=== PATIENT | male | born 1965 | race Caucasian/White ===

== ENCOUNTER 2017-11-30 19:47 | Observation (INO) ==
[2017-11-30 20:38] LABS: Bilirubin,Urine Negative (Negative); Blood,Urine Negative (Negative); Clarity,Urine Clear (Clear); Color,Urine Yellow (Yellow); Glucose,Urine (UA) Normal (Normal); Ketones,Urine Negative (Negative); Leukocyte Esterase,Urine Negative (Negative); Nitrite,Urine Negative (Negative); PH,Urine 7.5 pH Units (5.0-8.0); Protein,Urine Negative (Neg-Trace); Specific Gravity,Urine 1.016 (1.010-1.025); Urobilinogen,Urine Normal (Normal)
[2017-11-30 21:03] LABS: Basophils # 0.1 K/mcL (0.0-0.2); Basophils % 0.5 %; Eosinophils # 0.2 K/mcL (0.0-0.6); Eosinophils % 1.9 %; Hematocrit 48.7 % (37.5-50.1); Hemoglobin 16.8 g/dL (12.9-16.9); Immature Granulocytes % 0.7 % (0-4); Lymphocytes # 1.4 K/mcL (0.6-4.6); Lymphocytes % 12.4 %; Mean Corpuscular HGB Conc 34.5 g/dL (31.6-35.5); Mean Corpuscular Hemoglobin 31.3 pg (28.0-33.3); Mean Corpuscular Volume 90.9 fL (83.0-100.0); Mean Platelet Volume 11.2 fL (9.4-12.4); Monocytes # 0.8 K/mcL (0.0-1.3); Neutrophils # 8.6 K/mcL (1.6-8.9); Platelet Count 159 K/mcL (140-400); Red Blood Count 5.36 M/mcL (4.19-5.50); Segmented Neutrophils % 77.5 %
[2017-11-30 21:21] LABS: Alanine Aminotransferase 24 Units/L (7-52); Albumin 4.4 g/dL (3.5-5.7); Albumin/Globulin Ratio 1.6 (1.1-2.2); Alkaline Phosphatase 55 Units/L (34-104); Amylase 38 Units/L (29-103); Aspartate Amino Transferase 18 Units/L (13-39); BUN/Creatinine Ratio 23 (6-26); Bilirubin,Direct 0.2 mg/dL (0.0-0.2); Bilirubin,Indirect 0.6 mg/dL (0.0-1.2); Bilirubin,Total 0.8 mg/dL (0.3-1.0); Blood Urea Nitrogen 22 mg/dL (6-20); Calcium 9.7 mg/dL (8.6-10.3); Carbon Dioxide 27 mEq/L (23-29); Chloride 101 mEq/L (98-107); Globulin 2.8 g/dL (2.4-3.5); Glucose 90 mg/dL (70-105); Lipase 26 Units/L (11-82); Osmolality,Calculated 285 (280-300); Potassium 3.7 mEq/L (3.5-5.1); Sodium 136 mEq/L (136-145); Total Protein 7.2 g/dL (6.4-8.9); eGFR For African Americans > 60 (> 60); eGFR For Non-African Americans > 60 (> 60)
[2017-11-30] MEDS ORDERED: *HR* FentaNYL (PF) 100 MCG/2 ML VIAL IVP ONE (22:10)
[2017-11-30] MEDS ORDERED: Ondansetron 4 MG/2 ML VIAL IVP ONE (22:10)
[2017-11-30] MEDS ORDERED: Isovue-370 500 ML INFUS..BTL IV ONE (22:20)
[2017-12-01] MEDS ORDERED: MetroNIDAZOLE 500 MG/100 ML 500 MG/100 ML BAG IVPB ONE (00:09)
--- NOTE | 2017-12-01 00:19 | Emergency Department Note ---
Disposition Clinical Impression: Diverticulitis Disposition: Admitted As Inpatient Condition: Fair Time of Disposition: 02:59 Abdominal Pain HPI - General Chief Complaint: ED Abdominal Pain Stated Complaint: "diverticulitis" Time Seen by Provider: 11/30/17 22:10 Nursing Notes Reviewed: Yes Vital Signs Reviewed: Yes - History of Present Illness HPI Narrative: Patient is a 52-year-old male who presents to [facility] ED with several days of left lower quadrant abdominal pain. States he has been nauseated and has not had anything to eat today. States he did have a fever earlier today. Denies any chest pain, difficulty breathing, problems with urination or bowel movements. States he was diagnosed in the past with diverticulitis and had to be admitted for this. Pt Subjective Complaint: abdominal pain Onset (ago): day(s) Consistency: Worsening Location: LLQ Pain Severity: moderate Pain Scale: 6 Quality: aching Radiation: none Migration to: no migration Improves with: nothing Worsens with: nothing Associated symptoms: Reports: nausea. Denies: vomiting, diarrhea, fever, chills , constipation, dysuria Treatments prior to arrival: none - Related Data Home Medications Medication Instructions Recorded Confirmed Atenolol [Tenormin] 25 mg PO DAILY 10/30/16 06/04/17 DULoxetine [Cymbalta] 30 mg PO BID 10/30/16 06/04/17 Ergocalciferol (VITAMIN D2) 50,000 unit PO SUTUTHSA 10/30/16 06/04/17 [Vitamin D2] Ezetimibe [Zetia] 10 mg PO DAILY 10/30/16 06/04/17 Glimepiride [Amaryl] 4 mg PO BID 10/30/16 06/04/17 HYDROmorphone [Dilaudid] 2 - 4 mg PO Q6HR PRN 10/30/16 06/04/17 LORazepam [Lorazepam] 2 mg PO BID 10/30/16 06/04/17 Levothyroxine Sodium [Synthroid] 200 mcg PO DAILY 10/30/16 06/04/17 Losartan Potassium [Cozaar] 100 mg PO DAILY 10/30/16 06/04/17 Metformin HCl [Glucophage] 1,000 mg PO BID 10/30/16 06/04/17 OxyCODONE Immed Rel [Roxicodone 20 20 mg PO Q6H PRN 10/30/16 06/04/17 MG] Sildenafil Citrate [Revatio] 20 mg PO DAILY PRN 10/30/16 06/04/17 Testosterone Cypionate [Testone 2 ml IM Q2W 10/30/16 06/04/17 Cik] Trazodone HCl 100 mg PO HS 10/30/16 06/04/17 diazePAM [Valium] 5 mg PO BID PRN 10/30/16 06/04/17 Allopurinol [Zyloprim 100 MG] 100 mg PO DAILY 06/04/17 06/04/17 Fish Oil/Borage/Flax/Om3,6,9#1 1,200 mg PO BID 06/04/17 06/04/17 [[place] 3-6-9 1,200 mg Softgel] Gemfibrozil [Lopid] 600 mg PO BID 06/04/17 06/04/17 Liraglutide [Victoza 2-Fly] 1.8 mg SQ DAILY 06/04/17 06/04/17 Triamterene/HCTZ 37.5/25mg 1 tab PO DAILY 06/04/17 06/04/17 [Dyazide] Varenicline Tartrate [Chantix 1 tab PO BID 06/04/17 06/04/17 Continuing Months Pack] Previous Rx's Medication Instructions Recorded HYDROcodone/Acet 5/325 mg [[place] 1 tab PO Q6H PRN #28 tab 06/04/17 5-325 mg] Allergies Allergy/AdvReac Type Severity Reaction Status Date / Time amphetamine [From Adderall] Allergy Anaphylaxis Verified 06/04/17 11:16 bupropion [From Wellbutrin] Allergy Anaphylaxis Verified 06/04/17 11:16 dextroamphetamine Allergy Anaphylaxis Verified 06/04/17 11:16 [From Adderall] tapentadol [From Nucynta] Allergy Anaphylaxis Verified 06/04/17 11:16 tramadol Allergy Anaphylaxis Verified 06/04/17 11:16 All systems ED: reviewed and negative except as stated. Abdominal Pain PMH - Past Medical History Medical history: Reports: diabetes, hyperlipidemia, hypertension, thyroid disease, other Male Surgical History: Reports: herniorrhaphy Psychiatric history: Reports: no psych history - Social History Smoking status: Former smoker Alcohol use: Reports: occasionally Drug use: Reports: none Physical Exam - General Limitations: no limitations General appearance: alert, in no apparent distress - Head Head exam: atraumatic, normocephalic, normal inspection - Eye Eye exam: Present: normal appearance, EOMI - ENT ENT exam: normal exam, normal oropharynx, mucous membranes moist - Neck Neck exam: Present: normal inspection, full ROM, trachea midline - Chest Chest inspection: Present: normal inspection, symmetric chest wall rise - Respiratory Respiratory exam: Present: normal lung sounds bilaterally - Cardiovascular Cardiovascular exam: Present: regular rate, normal rhythm, normal heart sounds - Abdominal Exam Abdominal exam: Present: soft, tenderness, normal bowel sounds Abdominal tenderness: Present: LLQ, severe - Extremities Exam Extremities exam: Present: normal inspection, full ROM. Absent: tenderness, pedal edema - Back Exam Back exam: Present: normal inspection, full ROM. Absent: tenderness - Neurological Exam Neurological exam: Present: alert, oriented X3 - Psychiatric Psychiatric exam: Present: normal affect, normal mood - Skin Skin exam: Present: warm, dry, intact, normal color Course Course Narrative: Patient seen and examined. Left lower quadrant abdominal pain. Suspect possible diverticulitis. Since patient has had this severe in the past and has been admitted, we will go ahead and get a CT abdomen and pelvis and labwork. 100 g of fentanyl ordered for pain and 4 mg Zofran for nausea. We will reassess. - Reevaluation(s) Reevaluation #1: CT shows signs of diverticulitis. Cipro and Flagyl ordered IV. I went back to discuss with the patient. Patient states his pain feels even worse than the last time he was admitted. Feels he would not be able to get better just on outpatient antibiotics since last time he got worse on oral antibiotics. We will admit for IV antibiotics. Time: 02:58 Vital Signs Temperature 98.4 F 11/30/17 19:49 Pulse Rate 96 11/30/17 19:49 Respiratory Rate 18 11/30/17 19:49 Blood Pressure 136/82 11/30/17 19:49 O2 Sat by Pulse Oximetry 98 11/30/17 19:49 Temperature 98.4 F 12/01/17 02:53 Pulse Rate 77 12/01/17 02:53 Respiratory Rate 14 12/01/17 02:53 Blood Pressure 124/78 12/01/17 02:53 O2 Sat by Pulse Oximetry 96 12/01/17 02:53 Oxygen Delivery Oxygen Delivery Room Air Abdominal Pain - Medical Records Medical records reviewed: Yes I reviewed the patient's medical records. - Lab Data Lab results reviewed: Yes I reviewed the patient's lab results. Result diagrams: 11/30/17 20:38 11/30/17 20:38 Lab Results 11/30/17 11/30/17 11/30/17 Range/Units 20:15 20:38 20:38 WBC 11.1 (4.3-11.1) K/mcL RBC 5.36 (4.19-5.50) M/mcL Hgb 16.8 (12.9-16.9) g/dL Hct 48.7 (37.5-50.1) % MCV 90.9 (83.0-100.0) fL MCH 31.3 (28.0-33.3) pg MCHC 34.5 (31.6-35.5) g/dL RDW 14.0 (11.5-14.5) % Plt Count 159 (140-400) K/mcL MPV 11.2 (9.4-12.4) fL Immature Gran % 0.7 (0-4) % Seg Neutrophils % 77.5 % Lymphocytes % 12.4 % Monocytes % 7.0 % Eosinophils % 1.9 % Basophils % 0.5 % Neutrophils # 8.6 (1.6-8.9) K/mcL Lymphocytes # 1.4 (0.6-4.6) K/mcL Monocytes # 0.8 (0.0-1.3) K/mcL Eosinophils # 0.2 (0.0-0.6) K/mcL Basophils # 0.1 (0.0-0.2) K/mcL Sodium 136 (136-145) mEq/L Potassium 3.7 (3.5-5.1) mEq/L Chloride 101 (98-107) mEq/L Carbon Dioxide 27 (23-29) mEq/L BUN 22 H (6-20) mg/dL Creatinine 0.96 (0.70-1.30) mg/dL Est GFR ( Amer) > 60 (> 60) Est GFR (Non-Af Amer) > 60 (> 60) BUN/Creatinine Ratio 23 (6-26) Glucose 90 (70-105) mg/dL Calculated Osmolality 285 (280-300) Calcium 9.7 (8.6-10.3) mg/dL Total Bilirubin 0.8 (0.3-1.0) mg/dL Direct Bilirubin 0.2 (0.0-0.2) mg/dL Indirect Bilirubin 0.6 (0.0-1.2) mg/dL AST 18 (13-39) Units/L ALT 24 (7-52) Units/L Alkaline Phosphatase 55 (34-104) Units/L Serum Total Protein 7.2 (6.4-8.9) g/dL Albumin 4.4 (3.5-5.7) g/dL Globulin 2.8 (2.4-3.5) g/dL Albumin/Globulin Ratio 1.6 (1.1-2.2) Amylase 38 (29-103) Units/L Lipase 26 (11-82) Units/L Urine Color Yellow (Yellow) Urine Clarity Clear (Clear) Urine pH 7.5 (5.0-8.0) pH Units Ur Specific [place] 1.016 (1.010-1.025) Urine Protein Negative (Neg-Trace) mg/dL Urine Glucose (UA) Normal (Normal) mg/dL Urine Ketones Negative (Negative) mg/dL Urine Blood Negative (Negative) Urine Nitrite Negative (Negative) Urine Bilirubin Negative (Negative) Urine Urobilinogen Normal (Normal) mg/dL Ur Leukocyte Esterase Negative (Negative) Ur Culture Indicated? NO (NO) - Radiology Data Radiology results reviewed: Yes I reviewed the patient's radiology results. Abdomen/Pelvis CT 11/30/17 22:20 IMPRESSION: Diverticulitis of the proximal descending colon. D/ / Ulises Allen MD / Ulises Allen MD Interpreting Provider: Ulises Allen MD Attestation Statement - Attestation Attestation: I examined this patient and my medical decision-making was reviewed with the Resident Physician. I agree with the documented findings, disposition and treatment plan as described except to the extent set forth below. Findings consistent with diverticulitis, located by nausea vomiting. We will start antibiotics and admit for nausea control as well as pain control and IV antibiotics.
[2017-12-01] MEDS ORDERED: Naloxone 0.4 MG/ML INJ IVP PRN (07:36)
[2017-12-01] MEDS ORDERED: Acetaminophen 325 MG TABLET PO PRN (07:36)
[2017-12-01] MEDS ORDERED: OXYCODONE Oral CONC 10 MG/0.5 ML ORAL.SYG SL PRN ×2 (07:36)
[2017-12-01] MEDS: *HR* Promethazine 25 MG/ML VIAL IVP PRN ×2 (08:31→20:08)
[2017-12-01] MEDS: Ringers Solution, Lactated 1,000 ML IVC SCH ×2 (08:31→20:08)
[2017-12-01] MEDS: MetroNIDAZOLE 500 MG/100 ML 500 MG/100 ML BAG IVPB SCH ×3 (08:34→22:45)
--- NOTE | 2017-12-01 08:47 | Internal Med History&Physical ---
Date of Encounter: 12/01/17 Time of Encounter: 08:40 Internal Medicine - H&P: HPI Chief complaint: Abdominal pain Admitted From: Emergency Dept Plans for Post Hospital Care: Home History of present illness: Mr. Chery is a 52 year old male patient with a history of diverticulitis, myotonic muscular dystrophy, diabetes mellitus, hypertension, hyperlipidemia who presented to the ER with complaints of left-sided abdominal pain. Symptoms began 2 days back. Progressively worsening. Patient reports that pain is 6-7 out of 10 in severity which he usually tolerates pain at a high level due to his chronic pain. He reports that he had an episode of diverticulitis 2 years back which became complicated and did not improve for about a month. He did not have any surgery at that time and underwent colonoscopy at a later date. He reports nausea. No vomiting. No hematochezia. No fevers at home. He does have diarrhea. Past Med Surg Social Fam HX - Past Medical History Attestation: Yes The following information was validated with the patient. 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 pacemaker - Social History Smoking Status: Former smoker Smokeless Tobacco Status: No Alcohol use: occasionally Drug use: none - Family History Mother Living Status: Still Living Hx Family Cardiac Disorders: Yes (pacemaker) Hx Family Respiratory Disorders: No Hx Family Cancer: No Hx Family GI Disorders: No Hx Family Genitourinary Disorders: No Hx Family Endocrine Disorder: No Hx Family Musculoskeletal Disorders: No Hx Family Neuromuscular Disorders: No Hx Family Neurologic Disorders: No Hx Family HEENT Disorders: No Hx Family Autoimmune Disorders: No Hx Family Reproductive Disorders: No Hx Family Psychosocial Disorders: No Hx Family Medical Disorders: No Father Living Status: Still Living Hx Family Cardiac Disorders: No Hx Family Respiratory Disorders: No Hx Family Cancer: Yes (skin ca) Hx Family GI Disorders: No Hx Family Genitourinary Disorders: No Hx Family Endocrine Disorder: No Hx Family Musculoskeletal Disorders: No Hx Family Neuromuscular Disorders: No Hx Family Neurologic Disorders: No Hx Family HEENT Disorders: No Hx Family Autoimmune Disorders: No Hx Family Reproductive Disorders: No Hx Family Psychosocial Disorders: No Hx Family Medical Disorders: No Internal Medicine - H&P: Meds Atenolol [Tenormin] 25 mg PO DAILY 10/30/16 [History] DULoxetine [Cymbalta] 30 mg PO BID 10/30/16 [History] Ergocalciferol (VITAMIN D2) [Vitamin D2] 50,000 unit PO SUTUTHSA 10/30/16 [ History] Ezetimibe [Zetia] 10 mg PO DAILY 10/30/16 [History] Glimepiride [Amaryl] 4 mg PO BID 10/30/16 [History] HYDROmorphone [Dilaudid] 2 - 4 mg PO Q6HR PRN 10/30/16 [History] LORazepam [Lorazepam] 2 mg PO BID 10/30/16 [History] Levothyroxine Sodium [Synthroid] 200 mcg PO DAILY 10/30/16 [History] Losartan Potassium [Cozaar] 100 mg PO DAILY 10/30/16 [History] Metformin HCl [Glucophage] 1,000 mg PO BID 10/30/16 [History] OxyCODONE Immed Rel [Roxicodone 20 MG] 20 mg PO Q6H PRN 10/30/16 [History] Testosterone Cypionate [Testone Cik] 2 ml IM Q2W 10/30/16 [History] Trazodone HCl 100 mg PO HS 10/30/16 [History] diazePAM [Valium] 5 mg PO BID PRN 10/30/16 [History] Allopurinol [Zyloprim 100 MG] 100 mg PO DAILY 06/04/17 [History] Fish Oil/Borage/Flax/Om3,6,9#1 [[place] 3-6-9 1,200 mg Softgel] 1,200 mg PO BID [History] Gemfibrozil [Lopid] 600 mg PO BID 06/04/17 [History] Liraglutide [Victoza 2-Fly] 1.8 mg SQ DAILY 06/04/17 [History] Triamterene/HCTZ 37.5/25mg [Dyazide] 1 tab PO DAILY 06/04/17 [History] Varenicline Tartrate [Chantix Continuing Months Pack] 1 tab PO BID 06/04/17 [ History] Chlorthalidone 25 mg PO DAILY 12/01/17 [History] 3 Allergy/AdvReac Type Severity Reaction Status Date / Time amphetamine [From Adderall] Allergy Anaphylaxis Verified 06/04/17 11:16 bupropion [From Wellbutrin] Allergy Anaphylaxis Verified 06/04/17 11:16 dextroamphetamine Allergy Anaphylaxis Verified 06/04/17 11:16 [From Adderall] tapentadol [From Nucynta] Allergy Anaphylaxis Verified 06/04/17 11:16 tramadol Allergy Anaphylaxis Verified 06/04/17 11:16 All Systems PM: A 10-system review of systems was performed and is negative for pertinent findings except as documented above in the HPI. - Constitutional Constitutional: malaise, no chills, no fever(s), no night sweats - EENT Eyes: no change in vision, no discharge, no pain, no photophobia Ears: no ear discharge, no ear pain, no tinnitus Nose, mouth and throat: no dysphagia, no nasal discharge, no neck pain, no sore throat - Cardiovascular Cardiovascular ROS IM: no chest pain, no diaphoresis, no dyspnea, no lightheadedness, no palpitations, no syncope - Respiratory Respiratory: no cough, no dyspnea, no wheezing, no excessive phlegm production - Gastrointestinal Gastrointestinal: abdominal pain, loose stools, nausea - Musculoskeletal Musculoskeletal ROS IM: no numbness, no tingling - Integumentary Integumentary IM: no rash, no unusual bruising - Neurological Neurological ROS: no confusion, no convulsions, no focal weakness, no numbness, no tingling, no tremor(s) - Hematologic/Lymphatic Hematologic/Lymphatic: no easy bruising - Constitutional Vitals: Temp Pulse Resp BP Pulse Ox 97.6 F 68 17 149/83 96 12/01/17 07:57 12/01/17 07:57 12/01/17 07:57 12/01/17 07:57 12/01/17 07:57 General appearance: Present: cooperative, A&O X 3, obese, answers questions appropriately Exam: Moderate distress - Neck Neck exam general surgery: Present: supple, trachea midline. Absent: lymphadenopathy - Respiratory Respiratory exam: Present: CTAB. Absent: accessory muscle use, rales, rhonchi, wheezes - Cardiovascular Cardiovascular exam: Present: RRR, +S1, +S2. Absent: diastolic murmur, gallop, rubs, systolic murmur - GI/Abdominal GI/Abdominal exam: Present: normal bowel sounds, soft, tenderness (Left lower quadrant). Absent: distended - Extremities Exam Extremities exam: Present: warm, radial pulses palpable and symmetrical. Absent : calf tenderness, cyanotic, pedal edema - Neurological Exam Neurological exam: Present: CN II-XII intact, oriented X3, no focal deficits, strengths equal and symetr throughout. Absent: facial droop, speech deficit - Skin Skin exam: Present: dry, intact Internal Med - H&P Results - Labs CBC & Chem 7: 11/30/17 20:38 11/30/17 20:38 - Impressions Impressions Abdomen/Pelvis CT 11/30/17 22:20 IMPRESSION: Diverticulitis of the proximal descending colon. D/ / Ulises Allen MD / Ulises Allen MD Interpreting Provider: Ulises Allen MD - Assessment and plan (1) Diverticulitis Current Visit: Yes Status: Acute Assessment and plan: Acute diverticulitis of the proximal descending colon without perforation. Keep nothing by mouth. IV fluids. Consult surgery. IV antibiotics. High risk for complications. Pain control with narcotic medications. (2) Essential hypertension Current Visit: Yes Status: Chronic Assessment and plan: elevated this morning. Continue home medications (3) Diabetes mellitus, type 2 Current Visit: Yes Status: Chronic Assessment and plan: Will place patient on sliding scale insulin and diabetic diet when he is able to eat. For now patient is nothing by mouth. Qualifiers: Diabetes mellitus usp insulin use: without returns supervisor use Diabetes mellitus complication status: without complication Qualified Code(s): E11.9 - Type 2 diabetes mellitus without complications (4) Chronic pain Current Visit: Yes Status: Chronic Assessment and plan: Chronic pain on multiple narcotic medications at home. Will continue home medications. Qualifiers: Chronic pain type: other chronic pain Qualified Code(s): G89.29 - Other chronic pain (5) Hypothyroidism Current Visit: Yes Status: Chronic Assessment and plan: Continue levothyroxine Qualifiers: Hypothyroidism type: other Qualified Code(s): E03.8 - Other specified hypothyroidism - Time Spent With Patient Total time spent is greater than 50% in coordination of care (as documented) at patient's floor/unit and/or counseling patient:
[2017-12-01] MEDS ORDERED: *HR* OxyCODONE Immed Rel 5 MG TABLET PO PRN (08:48)
[2017-12-01] MEDS ORDERED: diazePAM 5 MG TABLET PO PRN (08:48)
[2017-12-01] MEDS: *HR* HYDROmorphone 2 MG TABLET PO PRN ×2 (10:01→18:12)
[2017-12-01] MEDS: FLAX PO SCH ×2 (10:06→20:10)
[2017-12-01] MEDS: [UNRECOGNIZED DRUG - OTHER] PO SCH ×2 (10:06→20:10)
[2017-12-01] MEDS: BORAGE PO SCH ×2 (10:06→20:10)
[2017-12-01] MEDS: FISH OIL PO SCH ×2 (10:06→20:10)
--- NOTE | 2017-12-01 10:43 | General Surgery Consult Note ---
Date of Encounter: 12/01/17 Time of Encounter: 10:39 Assessment and Plan (1) Diverticulitis Current Visit: Yes Status: Acute Eitan beth very pleasant 52-year-old male who was history and physical is consistent with acute diverticulitis without perforation. His clinical course thus far has included laboratory studies which are unremarkable and a CT of the abdomen and pelvis without contrast which revealed diverticulitis of the proximal descending colon. There is no mention of free air , fluid, or focal fluid. He has been treated with bowel rest and IV antibiotics. His abdominal discomfort has not resolved. Although he notes he did try clears yesterday and experienced pain so he was made NPO. Plan: agree with bowel rest and IV antibiotics (Cipro Flagyl) may attempt to reintroduce PO when he is pain free he will need interval follow-up for a colonoscopy and consideration for a sigmoid resection he will be scheduled with Dr. Marmolejo on January 05 at 8:30 AM to schedule follow-up colonoscopy and discuss further treatment we will continue to follow along with you in the interim repeat a.m. labs consult to nutrition for diverticulitis diet education. He will be recommended to follow a low fiber diet during the acute phase of his recovery. Final recommendations pending attending attestation (2) Chronic pain Current Visit: Yes Status: Chronic Per primary team Qualifiers: Chronic pain type: other chronic pain Qualified Code(s): G89.29 - Other chronic pain (3) Diabetes mellitus, type 2 Current Visit: Yes Status: Chronic Per primary team Qualifiers: Diabetes mellitus longwall foreman insulin use: without mcc use Diabetes mellitus complication status: without complication Qualified Code(s): E11.9 - Type 2 diabetes mellitus without complications (4) Essential hypertension Current Visit: Yes Status: Chronic Per primary team (5) Hypothyroidism Current Visit: Yes Status: Chronic Per primary team Qualifiers: Hypothyroidism type: other Qualified Code(s): E03.8 - Other specified hypothyroidism History of Present Illness Consult date: 12/01/17 (Dr. Jordy Marmolejo) Reason for consult: other Requesting physician: Francisca Rocha History of present illness: Eitan is a 52-year-old male with a past medical history of myotonic dystrophy type II, cognitive function decline, hypothyroidism, type II diabetes mellitus, obesity, sleep apnea, chronic pain, cardiac dysrhythmia for which he has a pacemaker, gout, diverticular disease, hyperplastic polyp, and a surgical history of cardiac cast without stents 2005, EGD colonoscopy with polypectomy ( Dr. Kay), 2011, colonoscopy with Dr. Nickerson 12/2014, incision and drainage of left gluteal epidermal cyst, pacemaker 09/2013 hernia repair 2015. He is a former smoker who stopped in May 2017, denies alcohol use or illicit drug use. He presented on 12/01/2017 with complaints of left sided abdominal pain that began approximately 2 days ago, progressively worsened, was rated 6 out of 10, and associated with fever (tmax 100), thin stools, and nausea. He denies vomiting or diarrhea. He denies black, bloody, or tarry stool. He denies changes in bowel habits. He denies urinary signs or symptoms. He denies headache, dizziness, lightheadedness, chest pain, shortness of breath, or chills. He endorses chronic musculoskeletal pain. His clinical course thus far has included laboratory studies which are unremarkable and a CT of the abdomen and pelvis without contrast which revealed diverticulitis of the proximal descending colon. There is no mention of free air , fluid, or focal fluid. He has been treated with bowel rest and IV antibiotics. Eitan further reports 2 episodes over the last year that felt similar to this episode for which he "stopped eating and the pain went away." Surgery has been asked to see this patient for recommendations regarding diverticulitis. Past Med Surg Social Fam HX - Past Medical History Medical history: diabetes, hyperlipidemia, hypertension, thyroid disease, other Additional medical history: muscular dystrophy type 2 Psychiatric history: no psych history - Past Surgical History Additional surgical history: excision of cyst from Left buttock, cardiac cath w / no stents, edg/ colonoscopy, I&D of left gluteal epidermal cyst, trucut biospy right arm, excisional biospy right axillary mass, sesmoid right, bipap. pacemaker - Social History Smoking Status: Former smoker Smokeless Tobacco Status: No Alcohol use: occasionally Drug use: none - Family History Mother Living Status: Still Living Hx Family Cardiac Disorders: Yes (pacemaker) Hx Family Respiratory Disorders: No Hx Family Cancer: No Hx Family GI Disorders: No Hx Family Genitourinary Disorders: No Hx Family Endocrine Disorder: No Hx Family Musculoskeletal Disorders: No Hx Family Neuromuscular Disorders: No Hx Family Neurologic Disorders: No Hx Family HEENT Disorders: No Hx Family Autoimmune Disorders: No Hx Family Reproductive Disorders: No Hx Family Psychosocial Disorders: No Hx Family Medical Disorders: No Father Living Status: Still Living Hx Family Cardiac Disorders: No Hx Family Respiratory Disorders: No Hx Family Cancer: Yes (skin ca) Hx Family GI Disorders: No Hx Family Genitourinary Disorders: No Hx Family Endocrine Disorder: No Hx Family Musculoskeletal Disorders: No Hx Family Neuromuscular Disorders: No Hx Family Neurologic Disorders: No Hx Family HEENT Disorders: No Hx Family Autoimmune Disorders: No Hx Family Reproductive Disorders: No Hx Family Psychosocial Disorders: No Hx Family Medical Disorders: No Medications and Allergies Atenolol [Tenormin] 25 mg PO DAILY 10/30/16 [History] DULoxetine [Cymbalta] 30 mg PO BID 10/30/16 [History] Ergocalciferol (VITAMIN D2) [Vitamin D2] 50,000 unit PO SUTUTHSA 10/30/16 [ History] Ezetimibe [Zetia] 10 mg PO DAILY 10/30/16 [History] Glimepiride [Amaryl] 4 mg PO BID 10/30/16 [History] HYDROmorphone [Dilaudid] 2 - 4 mg PO Q6HR PRN 10/30/16 [History] LORazepam [Lorazepam] 2 mg PO BID 10/30/16 [History] Levothyroxine Sodium [Synthroid] 200 mcg PO DAILY 10/30/16 [History] Losartan Potassium [Cozaar] 100 mg PO DAILY 10/30/16 [History] Metformin HCl [Glucophage] 1,000 mg PO BID 10/30/16 [History] OxyCODONE Immed Rel [Roxicodone 20 MG] 20 mg PO Q6H PRN 10/30/16 [History] Testosterone Cypionate [Testone Cik] 2 ml IM Q2W 10/30/16 [History] Trazodone HCl 100 mg PO HS 10/30/16 [History] diazePAM [Valium] 5 mg PO BID PRN 10/30/16 [History] Allopurinol [Zyloprim 100 MG] 100 mg PO DAILY 06/04/17 [History] Fish Oil/Borage/Flax/Om3,6,9#1 [[place] 3-6-9 1,200 mg Softgel] 1,200 mg PO BID [History] Gemfibrozil [Lopid] 600 mg PO BID 06/04/17 [History] Liraglutide [Victoza 2-Fly] 1.8 mg SQ DAILY 06/04/17 [History] Triamterene/HCTZ 37.5/25mg [Dyazide] 1 tab PO DAILY 06/04/17 [History] Varenicline Tartrate [Chantix Continuing Months Pack] 1 tab PO BID 06/04/17 [ History] Chlorthalidone 25 mg PO DAILY 12/01/17 [History] 3 Allergy/AdvReac Type Severity Reaction Status Date / Time amphetamine [From Adderall] Allergy Anaphylaxis Verified 06/04/17 11:16 bupropion [From Wellbutrin] Allergy Anaphylaxis Verified 06/04/17 11:16 dextroamphetamine Allergy Anaphylaxis Verified 06/04/17 11:16 [From Adderall] tapentadol [From Nucynta] Allergy Anaphylaxis Verified 06/04/17 11:16 tramadol Allergy Anaphylaxis Verified 06/04/17 11:16 Review of Systems All systems PM: reviewed and no additional remarkable complaints except as stated All systems PM: The remainder of the systems were reviewed and are negative General Surgery Exam Initial Vital Signs Temp Pulse Resp BP Pulse Ox 98.4 F 96 18 136/82 98 11/30/17 19:49 11/30/17 19:49 11/30/17 19:49 11/30/17 19:49 11/30/17 19:49 VITAL SIGNS: Reviewed. See [facility] GENERAL: In no apparent distress. HEENT: Normocephalic, atraumatic, pupils are equal and reactive, extraocular motions intact, oropharynx is pink and moist, there is no neck adenopathy or JVD noted. CHEST/RESPIRATORY: The thorax is free from signs of trauma. Lung sounds: clear to auscultation, normal respiratory effort CARDIAC: Regular rate and rhythm. Normal S1 and S2, without murmurs, gallops, or rubs. VASCULAR: No Edema. 2+ peripheral pulses. ABDOMEN: obese (protuberant), soft, hypoactive bowel sounds, tender to palpation in the left lower quadrant MUSCULOSKELETAL: Good range of motion of all major joints. Extremities without clubbing, cyanosis or edema. NEUROLOGIC EXAM: Alert and oriented x 3. Speech normal. Follows commands. PSYCHIATRIC: Mood normal. SKIN: hypertrichosis noted, otherwise No rash or lesions. Exam Initial Vital Signs Temp Pulse Resp BP Pulse Ox 98.4 F 96 18 136/82 98 11/30/17 19:49 11/30/17 19:49 11/30/17 19:49 11/30/17 19:49 11/30/17 19:49 Results - Labs 11/30/17 20:38 11/30/17 20:38 Abnormal lab results BUN 22 mg/dL (6-20) H 11/30/17 20:38 All other labs normal. - Imaging CT scan - abdomen: report reviewed CT scan - pelvis: report reviewed Consult Discharge Plan - Plan Instructions: Diverticulitis (DC), Diverticulitis Diet (DC) Additional Instructions: Follow a low fiber diet for 2 weeks. If you are no longer having abdominal discomfort you may reintroduce a high-fiber/diverticulitis diet. Follow-up with surgery as directed Referrals: Ivan Schmidt MD [Primary Care Provider] - Jordy Marmolejo MD [Partnered Physician] - 01/05/18 8:30 am
[2017-12-01] MEDS: *HR* FentaNYL (PF) 100 MCG/2 ML VIAL IVP PRN ×2 (11:15→15:27)
[2017-12-01] MEDS: *HR* Heparin 5,000 UNIT/ML VIAL SQ SCH (17:18)
[2017-12-01] MEDS: traZODone 50 MG TABLET PO SCH (22:44)
[2017-12-01] MEDS: *HR* LORazepam 1 MG TABLET PO PRN (22:44)
[2017-12-02] MEDS: *HR* Heparin 5,000 UNIT/ML VIAL SQ SCH ×2 (05:07→18:19)
[2017-12-02] MEDS: Ringers Solution, Lactated 1,000 ML IVC SCH ×3 (05:10→19:47)
[2017-12-02 07:10] LABS: Basophils % 0.7 %; Eosinophils # 0.3 K/mcL (0.0-0.6); Eosinophils % 4.6 %; Hematocrit 47.9 % (37.5-50.1); Hemoglobin 16.4 g/dL (12.9-16.9); Immature Granulocytes % 0.7 % (0-4); Lymphocytes # 1.1 K/mcL (0.6-4.6); Lymphocytes % 19.7 %; Mean Corpuscular HGB Conc 34.2 g/dL (31.6-35.5); Mean Corpuscular Hemoglobin 31.6 pg (28.0-33.3); Mean Corpuscular Volume 92.3 fL (83.0-100.0); Mean Platelet Volume 11.5 fL (9.4-12.4); Monocytes # 0.4 K/mcL (0.0-1.3); Platelet Count 136 K/mcL (140-400); Red Blood Count 5.19 M/mcL (4.19-5.50); Segmented Neutrophils % 66.3 %
[2017-12-02 07:18] LABS: Neutrophils # 3.7 K/mcL (1.6-8.9)
[2017-12-02 08:16] LABS: BUN/Creatinine Ratio 22 (6-26); Blood Urea Nitrogen 21 mg/dL (6-20); Calcium 9.6 mg/dL (8.6-10.3); Carbon Dioxide 28 mEq/L (23-29); Chloride 100 mEq/L (98-107); Glucose 84 mg/dL (70-105); Osmolality,Calculated 284 (280-300); Potassium 3.7 mEq/L (3.5-5.1); Sodium 136 mEq/L (136-145); eGFR For African Americans > 60 (> 60); eGFR For Non-African Americans > 60 (> 60)
[2017-12-02] MEDS: MetroNIDAZOLE 500 MG/100 ML 500 MG/100 ML BAG IVPB SCH ×3 (08:34→23:00)
[2017-12-02] MEDS: FISH OIL PO SCH ×2 (08:35→21:17)
[2017-12-02] MEDS: *HR* HYDROmorphone 2 MG TABLET PO PRN ×2 (08:35→16:03)
[2017-12-02] MEDS: FLAX PO SCH ×2 (08:35→21:17)
[2017-12-02] MEDS: BORAGE PO SCH ×2 (08:35→21:17)
[2017-12-02] MEDS: [UNRECOGNIZED DRUG - OTHER] PO SCH ×2 (08:35→21:17)
--- NOTE | 2017-12-02 09:22 | Wound Care Progress Note ---
Date of Encounter: 12/02/17 Time of Encounter: 07:20 Patient/Caregiver Education - Learning Barriers Hearing Ability: Hard of Hearing Patient Wound Assessment - Vital Signs Temperature: 97.5 F Pulse Rate: 61 Respiratory Rate: 18 Blood Pressure: 111/74 O2 Sat by Pulse Oximetry: 98 Blood Glucose: 81 - Pain Present Pain Present: Allowed to Sleep Subjective Narrative: The patient has recurrent diverticulitis. CAT scan findings are very mild. He has a good deal of pain in the left lower quadrant. His white blood cell count is normal. I would continue intravenous antibiotics until the patient is pain- free. His custom possibility of convalescent sigmoid colectomy, however, with the patient's myotonic dystrophy he is very hesitant to undertake elective surgery. We will discuss this further during convalescent outpatient follow-up. Objective Last Vital Signs Temp 97.5 F L 12/02/17 07:38 Pulse 61 12/02/17 07:38 Resp 18 12/02/17 07:38 BP 111/74 12/02/17 07:38 Pulse Ox 98 12/02/17 07:38 - General physical appearance well developed, well nourished - Cardiac Cardiovascular exam: RRR, no murmurs/rubs/gallops - Respiratory normal expansion, normal respiratory effort, clear to percussion, clear to auscultation - Abdomen Abdomen: bowel sounds present, tender Abdominal Tenderness: LLQ (No guarding or rebound. Tender to mild palpation in the left lower quadrant) - Neurologic CN 2-12 grossly intact, normal coordination, normal sensation - Psychiatric A/Ox3, speech is normal, memory intact - Labs 12/02/17 06:15 12/02/17 07:52 Diabetes panel 12/02/17 Range/Units 07:52 Sodium 136 (136-145) mEq/L Potassium 3.7 (3.5-5.1) mEq/L Chloride 100 (98-107) mEq/L Carbon Dioxide 28 (23-29) mEq/L BUN 21 H (6-20) mg/dL Creatinine 0.96 (0.70-1.30) mg/dL Glucose 84 (70-105) mg/dL Calcium 9.6 (8.6-10.3) mg/dL Calcium panel 12/02/17 Range/Units 07:52 Calcium 9.6 (8.6-10.3) mg/dL Pituitary panel 12/02/17 Range/Units 07:52 Sodium 136 (136-145) mEq/L Potassium 3.7 (3.5-5.1) mEq/L Chloride 100 (98-107) mEq/L Carbon Dioxide 28 (23-29) mEq/L BUN 21 H (6-20) mg/dL Creatinine 0.96 (0.70-1.30) mg/dL Glucose 84 (70-105) mg/dL Calcium 9.6 (8.6-10.3) mg/dL Adrenal panel 12/02/17 Range/Units 07:52 Sodium 136 (136-145) mEq/L Potassium 3.7 (3.5-5.1) mEq/L Chloride 100 (98-107) mEq/L Carbon Dioxide 28 (23-29) mEq/L BUN 21 H (6-20) mg/dL Creatinine 0.96 (0.70-1.30) mg/dL Glucose 84 (70-105) mg/dL Calcium 9.6 (8.6-10.3) mg/dL - Assessment and Plan (1) Diverticulitis Current Visit: Yes Status: Acute This is the patient's second episode of diverticulitis requiring hospitalization. He will require convalescent workup for elective resection of the sigmoid colon. He is very hesitant to consider surgery secondary to myotonic dystrophy I think that there is a reasonable discussion and we will continue to follow him closely. His white blood cell count is normal and CAT scan changes are minimal. This episodde should resolve with IV antibiotic Consult Discharge Plan - Plan Instructions: Diverticulitis (DC), Diverticulitis Diet (DC) Additional Instructions: Follow a low fiber diet for 2 weeks. If you are no longer having abdominal discomfort you may reintroduce a high-fiber/diverticulitis diet. Follow-up with surgery as directed Referrals: Jordy Marmolejo MD [Partnered Physician] - 01/05/18 8:30 am Ivan Schmidt MD [Primary Care Provider] - (Follow up appointment has been requested. Office will contact patient with day and time of appointment. )
--- NOTE | 2017-12-02 14:29 | Internal Med Progress Note ---
Date of Encounter: 12/02/17 Time of Encounter: 14:27 - Assessment and plan (1) Diverticulitis Current Visit: Yes Status: Acute Assessment and plan: Presents with left lower quadrant abdominal pain CT findings of acute diverticulitis and proximal descending colon without perforation Has been nothing by mouth without nausea or vomiting Advanced to clear liquid diet, advance as tolerated to target diet of diabetic with before meals and at bedtime Accu-Cheks Continue IVF, consider discontinuing in the morning Surgery sitting in consultation, appreciate recommendations Continue IV ABX; high risk for complications Continue current narcotic regimen for pain control Acute diverticulitis of the proximal descending colon without perforation. Keep nothing by mouth. IV fluids. Consult surgery. Possibility of convalescent sigmoid colectomy discussed over patient is hesitant due to history of myotonic dystrophy (2) Essential hypertension Current Visit: Yes Status: Chronic Assessment and plan: History of HTN, blood pressure remained stable, Continue home medications (3) Diabetes mellitus, type 2 Current Visit: Yes Status: Chronic Assessment and plan: History of DM II Blood glucose remained stable Not getting coverage at this time due to normal blood glucose Resume diet however, monitor glucose and had sliding scale when patient tolerating diet Qualifiers: Diabetes mellitus termite control servicer insulin use: without termite control servicer use Diabetes mellitus complication status: without complication Qualified Code(s): E11.9 - Type 2 diabetes mellitus without complications (4) Chronic pain Current Visit: Yes Status: Chronic Assessment and plan: Chronic pain on multiple narcotic medications at home. Continue home medications at this time Qualifiers: Chronic pain type: other chronic pain Qualified Code(s): G89.29 - Other chronic pain (5) Hypothyroidism Current Visit: Yes Status: Chronic Assessment and plan: History of hypothyroidism, continue levothyroxine at home dose Currently able to tolerate medications and oral intake Should patient develop nausea and vomiting, consider IV Synthroid Qualifiers: Hypothyroidism type: other Qualified Code(s): E03.8 - Other specified hypothyroidism - Time Spent With Patient Total time spent is greater than 50% in coordination of care (as documented) at patient's floor/unit and/or counseling patient: 25 - 35 minutes - Subjective Interval history: Patient seen and examined at bedside today. No acute changes overnight. Continued to report left lower quadrant abdominal discomfort however, reports that it is improving. Also continuing to have nausea without vomiting or diarrhea. Denies any hematemesis, hematochezia or melena. - Constitutional Vitals: Temp Pulse Resp BP Pulse Ox 98.3 F 71 20 125/82 95 12/02/17 11:22 12/02/17 11:22 12/02/17 11:22 12/02/17 11:22 12/02/17 11:22 General appearance: Present: cooperative, A&O X 3, obese, answers questions appropriately - Head Head exam: Present: atraumatic, normocephalic - Eye Eye exam: Present: PERRL, conjuntiva pink, sclera anicteric Pupils: Present: PERRL - Neck Neck exam general surgery: Present: supple, trachea midline. Absent: lymphadenopathy - Respiratory Respiratory exam: Present: CTAB. Absent: accessory muscle use, rales, rhonchi, wheezes - Cardiovascular Cardiovascular exam: Present: RRR, +S1, +S2. Absent: diastolic murmur, gallop, rubs, systolic murmur - GI/Abdominal GI/Abdominal exam: Present: normal bowel sounds, soft, tenderness (LLQ, reporting mild tenderness), no peritoneal signs. Absent: distended, firm, guarding - Extremities Exam Extremities exam: Present: warm, radial pulses palpable and symmetrical. Absent : calf tenderness, cyanotic, pedal edema - Neurological Exam Neurological exam: Present: CN II-XII intact, oriented X3, no focal deficits. Absent: pronater drift, facial droop, speech deficit - Skin Skin exam: Present: dry, intact Internal Medicine: Result - Labs CBC & Chem 7: 12/02/17 06:15 12/02/17 07:52 Labs: Short CBC 12/02/17 Range/Units 06:15 WBC 5.5 D (4.3-11.1) K/mcL Hgb 16.4 (12.9-16.9) g/dL Hct 47.9 (37.5-50.1) % Plt Count 136 L (140-400) K/mcL Neutrophils # 3.7 (1.6-8.9) K/mcL BMP 12/02/17 07:52 Sodium 136 Potassium 3.7 Chloride 100 Carbon Dioxide 28 BUN 21 H Creatinine 0.96 Glucose 84 Calcium 9.6 Consult Discharge Plan - Plan Instructions: Diverticulitis (DC), Diverticulitis Diet (DC) Additional Instructions: Follow a low fiber diet for 2 weeks. If you are no longer having abdominal discomfort you may reintroduce a high-fiber/diverticulitis diet. Follow-up with surgery as directed Referrals: Jordy Marmolejo MD [Partnered Physician] - 01/05/18 8:30 am Ivan Schmidt MD [Primary Care Provider] - (Follow up appointment has been requested. Office will contact patient with day and time of appointment. )
[2017-12-02] MEDS: *HR* Promethazine 25 MG/ML VIAL IVP PRN (20:27)
[2017-12-02] MEDS: traZODone 50 MG TABLET PO SCH (22:59)
[2017-12-02] MEDS: *HR* LORazepam 1 MG TABLET PO PRN (23:08)
[2017-12-03] MEDS: Ringers Solution, Lactated 1,000 ML IVC SCH ×2 (01:31→11:58)
[2017-12-03] MEDS: *HR* Heparin 5,000 UNIT/ML VIAL SQ SCH ×2 (05:35→16:57)
[2017-12-03] MEDS: MetroNIDAZOLE 500 MG/100 ML 500 MG/100 ML BAG IVPB SCH ×3 (08:25→23:05)
[2017-12-03] MEDS: *HR* Promethazine 25 MG/ML VIAL IVP PRN ×2 (10:34→16:57)
[2017-12-03] MEDS: [UNRECOGNIZED DRUG - OTHER] PO SCH ×2 (11:41→23:20)
[2017-12-03] MEDS: FLAX PO SCH ×2 (11:41→23:20)
[2017-12-03] MEDS: BORAGE PO SCH ×2 (11:41→23:20)
[2017-12-03] MEDS: FISH OIL PO SCH ×2 (11:41→23:20)
--- NOTE | 2017-12-03 14:17 | Internal Med Progress Note ---
Date of Encounter: 12/03/17 Time of Encounter: 14:15 - Assessment and plan (1) Diverticulitis Current Visit: Yes Status: Acute Assessment and plan: Presents with left lower quadrant abdominal pain, improving today. Abdomen no longer tender to palpation CT findings of acute diverticulitis and proximal descending colon without perforation Tolerating liquid diet, advance to regular diet today Discontinue IVF Surgery seeing in consultation, appreciate recommendations Continue IV ABX; high risk for complications Continue current narcotic regimen for pain control Possibility of convalescent sigmoid colectomy discussed. However, patient is hesitant due to history of myotonic dystrophy Patient continues to improve discharge tomorrow on oral ciprofloxacin and Flagyl (2) Essential hypertension Current Visit: Yes Status: Chronic Assessment and plan: History of HTN, blood pressure and to use to be stable today, 12/03/17 Continue home medications (3) Diabetes mellitus, type 2 Current Visit: Yes Status: Chronic Assessment and plan: History of DM II Blood glucose continues to be stable at 118 this afternoon Not getting coverage at this time due to normal blood glucose Resume diet however, monitor glucose and add sliding scale when patient tolerating diet Qualifiers: Diabetes mellitus concert manager insulin use: without fdc use Diabetes mellitus complication status: without complication Qualified Code(s): E11.9 - Type 2 diabetes mellitus without complications (4) Chronic pain Current Visit: Yes Status: Chronic Assessment and plan: Chronic pain on multiple narcotic medications at home. Continue home pain medications Qualifiers: Chronic pain type: other chronic pain Qualified Code(s): G89.29 - Other chronic pain (5) Hypothyroidism Current Visit: Yes Status: Chronic Assessment and plan: History of hypothyroidism, continue levothyroxine at home dose Qualifiers: Hypothyroidism type: other Qualified Code(s): E03.8 - Other specified hypothyroidism - Time Spent With Patient Total time spent is greater than 50% in coordination of care (as documented) at patient's floor/unit and/or counseling patient: 25 - 35 minutes - Subjective Interval history: Patient seen and examined at bedside today. No acute changes overnight. Reporting that his abdominal pain is improving. Nausea also improving, no vomiting or diarrhea. Denies any hematemesis, hematochezia or melena. - Constitutional Vitals: Temp Pulse Resp BP Pulse Ox 98.5 F 59 17 108/68 96 12/03/17 11:25 12/03/17 11:25 12/03/17 11:25 12/03/17 11:25 12/03/17 11:25 General appearance: Present: cooperative, A&O X 3, obese, answers questions appropriately - Head Head exam: Present: atraumatic, normocephalic - Eye Eye exam: Present: PERRL, conjuntiva pink, sclera anicteric Pupils: Present: PERRL - Neck Neck exam general surgery: Present: supple, trachea midline. Absent: lymphadenopathy - Respiratory Respiratory exam: Present: CTAB. Absent: accessory muscle use, rales, rhonchi, wheezes - Cardiovascular Cardiovascular exam: Present: RRR, +S1, +S2. Absent: diastolic murmur, gallop, rubs, systolic murmur - GI/Abdominal GI/Abdominal exam: Present: normal bowel sounds, soft, no peritoneal signs. Absent: distended, tenderness - Extremities Exam Extremities exam: Present: warm, radial pulses palpable and symmetrical. Absent : calf tenderness, cyanotic, pedal edema - Neurological Exam Neurological exam: Present: CN II-XII intact, oriented X3, no focal deficits. Absent: pronater drift, facial droop, speech deficit - Skin Skin exam: Present: dry, intact Internal Medicine: Result - Labs CBC & Chem 7: 12/02/17 06:15 12/02/17 07:52 Consult Discharge Plan - Plan Instructions: Diverticulitis (DC), Diverticulitis Diet (DC) Additional Instructions: Follow a low fiber diet for 2 weeks. If you are no longer having abdominal discomfort you may reintroduce a high-fiber/diverticulitis diet. Follow-up with surgery as directed Referrals: Jordy Marmolejo MD [Partnered Physician] - 01/05/18 8:30 am Ivan Schmidt MD [Primary Care Provider] - (Follow up appointment has been requested. Office will contact patient with day and time of appointment. )
[2017-12-03] MEDS: *HR* LORazepam 1 MG TABLET PO PRN (23:05)
[2017-12-03] MEDS: traZODone 50 MG TABLET PO SCH (23:05)
[2017-12-04] MEDS: *HR* Heparin 5,000 UNIT/ML VIAL SQ SCH (06:16)
[2017-12-04 07:18] VITALS: BP 131/83
[2017-12-04] MEDS: MetroNIDAZOLE 500 MG/100 ML 500 MG/100 ML BAG IVPB SCH (07:39)
[2017-12-04] MEDS: BORAGE PO SCH (07:41)
[2017-12-04] MEDS: FISH OIL PO SCH (07:41)
[2017-12-04] MEDS: [UNRECOGNIZED DRUG - OTHER] PO SCH (07:41)
[2017-12-04] MEDS: FLAX PO SCH (07:41)
--- NOTE | 2017-12-04 09:54 | Discharge Summary ---
- NOTES TO OUTPATIENT PROVIDER Notes to Outpatient Provider: Treated for diverticulitis. Discharged on ciprofloxacin and Flagyl. Patient no longer having nausea/vomiting on day of discharge. Mild left lower quadrant abdominal pain but no tenderness to palpation. No pending studies Date of Encounter: 12/04/17 Time of Encounter: 09:53 - Discharge Diagnosis (1) Diverticulitis Priority: Primary Status: Acute Assessment and Plan: Patient has history of diverticulitis flare approximately 2 years ago At that time she was recommended to get a sigmoid colectomy, however due to history of myotonic dystrophy patient declined Presented with left lower quadrant abdominal pain CT findings of acute diverticulitis and proximal descending colon without perforation Abdominal pain continuing to improve today. Abdomen no longer tender to palpation Tolerating regular diet Surgery was consulted throughout stay, discussed convalescent sigmoid colectomy , however, patient continues to be hesitant due to history of myotonic dystrophy and is opting for medical management Uneventful hospital course, remained stable condition, abdomen nonacute to examination. While inpatient he is receiving IV ciprofloxacin and Flagyl as well as antiemetics He will be discharged with Zofran for nausea, ciprofloxacin and Flagyl right total of 10 days of therapy Continue current home narcotic regimen for pain control Discussed the [facility] low residue diet Patient instructed to follow-up with PCP with only to discharge. Also, he has been informed to return to the ED showed abdominal pain persist or worsen, or should he develop fever or chills malaise and fatigue or nausea and vomiting. Patient verbalized understanding denies any further questions at this time. (2) Essential hypertension Priority: Secondary Status: Chronic (3) Diabetes mellitus, type 2 Priority: Secondary Status: Chronic Qualifiers: Diabetes mellitus intermediate designer insulin use: without intermediate designer use Diabetes mellitus complication status: without complication Qualified Code(s): E11.9 - Type 2 diabetes mellitus without complications (4) Chronic pain Priority: Secondary Status: Chronic Qualifiers: Chronic pain type: other chronic pain Qualified Code(s): G89.29 - Other chronic pain (5) Hypothyroidism Priority: Secondary Status: Chronic Qualifiers: Hypothyroidism type: other Qualified Code(s): E03.8 - Other specified hypothyroidism Hospital course: Mr. Chery is a 52 year old male Please see assessment and plan for hospital course Discharge discussed with: patient, nurse - Time Spent with Patient Total time spent providing and/or coordinating discharge services: Less than 30 minutes - Discharge Medications Home Medications: Atenolol [Tenormin] 25 mg PO DAILY 10/30/16 [History] DULoxetine [Cymbalta] 30 mg PO BID 10/30/16 [History] Ergocalciferol (VITAMIN D2) [Vitamin D2] 50,000 unit PO SUTUTHSA 10/30/16 [ History] Ezetimibe [Zetia] 10 mg PO DAILY 10/30/16 [History] Glimepiride [Amaryl] 4 mg PO BID 10/30/16 [History] HYDROmorphone [Dilaudid] 2 - 4 mg PO Q6HR PRN 10/30/16 [History] LORazepam [Lorazepam] 2 mg PO BID 10/30/16 [History] Levothyroxine Sodium [Synthroid] 200 mcg PO DAILY 10/30/16 [History] Losartan Potassium [Cozaar] 100 mg PO DAILY 10/30/16 [History] Metformin HCl [Glucophage] 1,000 mg PO BID 10/30/16 [History] OxyCODONE Immed Rel [Roxicodone 20 MG] 20 mg PO Q6H PRN 10/30/16 [History] Testosterone Cypionate [Testone Cik] 2 ml IM Q2W 10/30/16 [History] Trazodone HCl 100 mg PO HS 10/30/16 [History] diazePAM [Valium] 5 mg PO BID PRN 10/30/16 [History] Allopurinol [Zyloprim 100 MG] 100 mg PO DAILY 06/04/17 [History] Fish Oil/Borage/Flax/Om3,6,9#1 [[place]ca 3-6-9 1,200 mg Softgel] 1,200 mg PO BID [History] Gemfibrozil [Lopid] 600 mg PO BID 06/04/17 [History] Liraglutide [Victoza 2-Fly] 1.8 mg SQ DAILY 06/04/17 [History] Triamterene/HCTZ 37.5/25mg [Dyazide] 1 tab PO DAILY 06/04/17 [History] Varenicline Tartrate [Chantix Continuing Months Pack] 1 tab PO BID 06/04/17 [ History] Chlorthalidone 25 mg PO DAILY 12/01/17 [History] Ciprofloxacin [Cipro] 500 mg PO BID 8 Days #16 tablet 12/04/17 [Rx] metroNIDAZOLE [Flagyl] 500 mg PO TID 8 Days #24 tablet 12/04/17 [Rx] Allergies/Adverse Reactions: 3 Allergy/AdvReac Type Severity Reaction Status Date / Time amphetamine [From Adderall] Allergy Anaphylaxis Verified 06/04/17 11:16 bupropion [From Wellbutrin] Allergy Anaphylaxis Verified 06/04/17 11:16 dextroamphetamine Allergy Anaphylaxis Verified 06/04/17 11:16 [From Adderall] tapentadol [From Nucynta] Allergy Anaphylaxis Verified 06/04/17 11:16 tramadol Allergy Anaphylaxis Verified 06/04/17 11:16 Date of admission: 12/01/17 02:02 Primary care physician: Ivan Schmidt MD Consults: 12/01/17 08:32 Consult to Surgery [CONS] Routine Consulting Provider: Surgery [facility] Reason for Consult: Acute diverticulitis; recurrent episode- previously complicated per patient Time Notified: 08:33 Call Completed: Yes Discharging clinician: Mukund Warren Anticipated date of discharge: 12/04/17 - Constitutional Vitals: Temp Pulse Resp BP Pulse Ox 97.5 F L 55 14 131/83 97 12/04/17 07:16 12/04/17 07:16 12/04/17 07:16 12/04/17 07:16 12/04/17 07:16 General appearance: Present: cooperative, A&O X 3, obese, answers questions appropriately - Head Head exam: Present: atraumatic, normocephalic - Eye Eye exam: Present: PERRL, conjuntiva pink, sclera anicteric Pupils: Present: PERRL - Neck Neck exam general surgery: Present: supple, trachea midline. Absent: lymphadenopathy - Respiratory Respiratory exam: Present: CTAB. Absent: accessory muscle use, rales, rhonchi, wheezes - Cardiovascular Cardiovascular exam: Present: RRR, +S1, +S2. Absent: diastolic murmur, gallop, rubs, systolic murmur - GI/Abdominal GI/Abdominal exam: Present: normal bowel sounds, soft, no peritoneal signs. Absent: distended, tenderness - Extremities Exam Extremities exam: Present: warm, radial pulses palpable and symmetrical. Absent : calf tenderness, cyanotic, pedal edema - Neurological Exam Neurological exam: Present: CN II-XII intact, oriented X3, no focal deficits. Absent: pronater drift, facial droop, speech deficit - Skin Skin exam: Present: dry, intact - Patient Status Disposition: Home, Self-Care Condition: Fair Functional capacity at discharge: independent ambulation Overall status at discharge: patient is progressing back to baseline - Discharge Instructions Instructions: Diverticulitis (DC), Diverticulitis Diet (DC) Follow Up With: Jordy Marmolejo MD [Partnered Physician] - 01/05/18 8:30 am Ivan Schmidt MD [Primary Care Provider] - 12/08/17 11:00 am () Additional Instructions: Follow a low fiber diet for 2 weeks. If you are no longer having abdominal discomfort you may reintroduce a high-fiber/diverticulitis diet. Follow-up with surgery as directed - Diet and Activity Activity: resume usual activities as tolerated Diet: other (low residue diet)
== END 2017-12-04 11:03 | disposition home or self-care (01) ==
LOC: 3BNU 19:47 → EMEROO 19:47 → 3BNU 12-01 02:45
PROVIDERS: ADMIT Internal Medicine Nephrology; ATTEND Internal Medicine Nephrology

== ENCOUNTER 2018-07-08 12:38 | Observation (INO) ==
[2018-07-08] MEDS ORDERED: Ringers Solution, Lactated 1,000 ML IVC SCH ×2 (13:15→20:34)
--- NOTE | 2018-07-08 13:57 | Anesthesia Evaluation PreOp ---
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 History: Other (anxiety) Other Medical History: Renal (ckd), Diabetes Type II, Thyroid, Other (myotonic dystrophy type 2) Anesthesia History: No Prior Anesthetic Complications Alcohol Use: occasionally Drug use: none Medications and Allergies Atenolol [Tenormin] 25 mg PO DAILY 10/30/16 [History] DULoxetine [Cymbalta] 30 mg PO BID 10/30/16 [History] Ergocalciferol (VITAMIN D2) [Vitamin D2] 50,000 unit PO SUTUTHSA 10/30/16 [History] Ezetimibe [Zetia] 10 mg PO DAILY 10/30/16 [History] Glimepiride [Amaryl] 4 mg PO BID 10/30/16 [History] HYDROmorphone [Dilaudid] 2 - 4 mg PO Q6HR PRN 10/30/16 [History] LORazepam [Lorazepam] 2 mg PO BID 10/30/16 [History] Levothyroxine Sodium [Synthroid] 200 mcg PO DAILY 10/30/16 [History] Losartan Potassium [Cozaar] 100 mg PO DAILY 10/30/16 [History] Metformin HCl [Glucophage] 1,000 mg PO BID 10/30/16 [History] OxyCODONE Immed Rel [Roxicodone 20 MG] 20 mg PO Q6H PRN 10/30/16 [History] Testosterone Cypionate [Testone Cik] 2 ml IM Q2W 10/30/16 [History] Trazodone HCl 100 mg PO HS 10/30/16 [History] diazePAM [Valium] 5 mg PO BID PRN 10/30/16 [History] Allopurinol [Zyloprim 100 MG] 100 mg PO DAILY 06/04/17 [History] Fish Oil/Borage/Flax/Om3,6,9#1 [[place] 3-6-9 1,200 mg Softgel] 1,200 mg PO BID 06/04/17 [History] Gemfibrozil [Lopid] 600 mg PO BID 06/04/17 [History] Liraglutide [Victoza 2-Fly] 1.8 mg SQ DAILY 06/04/17 [History] Triamterene/HCTZ 37.5/25mg [Dyazide] 1 tab PO DAILY 06/04/17 [History] Varenicline Tartrate [Chantix Continuing Months Pack] 1 tab PO BID 06/04/17 [History] Chlorthalidone 25 mg PO DAILY 12/01/17 [History] Ciprofloxacin [Cipro] 500 mg PO BID 8 Days #16 tablet 12/04/17 [Rx] metroNIDAZOLE [Flagyl] 500 mg PO TID 8 Days #24 tablet 12/04/17 [Rx] Allergy/AdvReac Type Severity Reaction Status Date / Time amphetamine [From Adderall] Allergy Anaphylaxis Verified 07/08/18 14:00 bupropion [From Wellbutrin] Allergy Anaphylaxis Verified 07/08/18 14:00 dextroamphetamine Allergy Anaphylaxis Verified 07/08/18 14:00 [From Adderall] tapentadol [From Nucynta] Allergy Anaphylaxis Verified 07/08/18 14:00 tramadol Allergy Anaphylaxis Verified 07/08/18 14:00 - Meds/Allergy Pre-op Review Medications Reviewed: Yes Allergies Reviewed: Yes Beta Blockers on Current Med List: Yes (atenolol) If Beta Blockers taken, Date/Time (Last Dose taken): 07-07-18 atenolol at 23:00 Anesthesia Results - Labs 05-28-18 [facility]: CBC 6.6 Hgb 17.2 Hct 49.6 Plt 173 CMP Na 139 K 4.3 Cl 94 CO2 23 BUN 36 Cr 1.05 Ca 11.2 - Imaging EKG: report reviewed, image reviewed (SINUS RHYTHM WITH FIRST DEGREE AV BLOCK POSSIBLE LEFT ATRIAL ENLARGEMENT EARLY REPOLARIZATION) Anesthesia Exam Last Vital Signs Temp 97.9 F 07/08/18 13:33 Pulse 65 07/08/18 13:33 Resp 18 07/08/18 13:33 BP 130/82 07/08/18 13:33 Pulse Ox 98 07/08/18 13:33 Weight: 122 kg NPO (# of Hours): > 8 hrs - HEENT Pupil (Motor): Pupils equal, EOMI Mallampati: II Teeth: Normal Oral Opening: Greater than 3 - ELECTROMECHANICAL EQUIPMENT TESTER LOC: Oriented - Cardiac Rhythm: Regular Murmur: None - Pulmonary Breath Sounds: bilateral Clear Respiratory Effort: Symmetrical Anesthesia Assess/Plan ASA Score: 3 Level of consciousness: Cooperative Anesthetic Plan: General, Regional Nerve Block, Precautions (with myotonic dystrophy type 2: Recommended pre-cautions include: 1. regional anesthesia when possible 2. caution with sedatives (patient takes valium and oxycodone at home) 3. use pati hugger/warmer 4. consider application of defribrillation pads 5. Avoid succinylcholine 6. adhere to strict extubation criteria 7. Be prepared for the possibility of aspiration) Regional Nerve Block Plan: Popliteal Monitoring Plan: Standard Monitors Recovery Plan: PACU
[2018-07-08] MEDS ORDERED: *HR* OxyCODONE Immed Rel 5 MG TABLET PO PRN ×2 (14:29→20:34)
[2018-07-08] MEDS ORDERED: *HR* FentaNYL (PF) 100 MCG/2 ML VIAL ONE ×4 (15:20→19:20)
[2018-07-08] MEDS ORDERED: *HR* Propofol 200 MG/20 ML VIAL IVP ONE (15:20)
[2018-07-08] MEDS ORDERED: *HR* Midazolam HCl 2 MG/2 ML VIAL ONE ×3 (15:20→19:19)
[2018-07-08] MEDS ORDERED: Ondansetron 4 MG/2 ML VIAL ONE (15:22)
[2018-07-08] MEDS ORDERED: Lidocaine -MPF 2% 2 ML VIAL ONE (15:22)
[2018-07-08] MEDS ORDERED: Lidocaine 1% 20 ML MDV ONE (15:25)
--- NOTE | 2018-07-08 15:42 | History & Physical Report ---
Date of Encounter: 07/08/18 Time of Encounter: 15:42 24 Hour HP Update - Instructions Instructions: If the History and Physical is less than 30 days old and was completed prior to A.M. admission and or procedure and has NOT been updated on calendar day of procedure please complete this update prior to performing procedure. - Update Patient reports changes in Medical Condition: No Changes in examination, assessment, or condition: No Changes in Medication: No Preop tests/diagnostics Reviewed: Yes Pre-Op MRSA Screen: Negative Surgery Remains Indicated: Yes Consent for Planned Operative Procedure(s) Verified: Yes - Pre-Operative Checklist Preoperative Checklist Indicated: Yes Prophylactic Antibiotic Ordered: Yes Home Medications Include Beta Ciera: No Beta Ciera Taken Today (Day of Surgery): No Beta Ciera Taken Yesterday (Day Prior to Surgery): No Is VTE Prophylaxis Indicated?: Yes
[2018-07-08] MEDS ORDERED: Lidocaine -MPF 4% 5 ML AMPUL ONE (16:05)
[2018-07-08] MEDS ORDERED: *HR* Rocuronium Bromide 50 MG/5 ML VIAL ONE ×2 (16:05→16:06)
[2018-07-08] MEDS ORDERED: *HR* Etomidate 40 MG/20 ML VIAL IVP ONE (16:30)
[2018-07-08] MEDS ORDERED: EPHEDrine 50 MG/ML VIAL ONE (16:36)
[2018-07-08] MEDS ORDERED: CeFAZolin Syr 3,000MG/30 ML 3,000 MG/30 ML SYRINGE IVPB ONE (16:37)
--- NOTE | 2018-07-08 19:14 | Orthopedic Operative Note ---
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 Open reduction with internal fixation right 3rd metatarsal fracture non- union. 2. Open reduction with internal fixation right 4th metatarsal fracture non- union. 3. [place] calcaneal bone graft right foot Implants: Synthes T-plate, short Synthes 6-hole LCP plate DBP putty Synthes 2.7 cortical screw x4 Synthes 2.4 cortical screw x5 Allosource tri-cortical ilium wedge graft Complications: None Anesthesia: GETA, local Surgeon: Kris Wilcox Was there an assistant education director present: No Estimated blood loss (cc): 5 Tourniquet Time (Minutes): 120 Specimen: Bone culture right 4th metatarsal non-union Condition: stable Disposition: observation Procedure in Detail: 07/08/18 19:15 INDICATIONS AND CONSENT Eitan Chery is a 52 year old male who initially presented with right foot pain and 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 He underwent open reduction with internal fixation right 4th metatarsal fracture 10/30/2016. He later underwent hardware removal on 06/04/2017 but continued to have pain following the procedure. Radiographs and CT indicated evidence of non-union of the right 4th and 3rd metatarsal fracture. He failed conservative treatments including rest, non-weightbearing, bone stimulator, and rigid shoe gear. Given the radiographic and clinical findings, surgical intervention was warranted. The patient elected to proceed with open reduction with internal fixation right 3rd and 4th metatarsal fracture non-union with harvest of calcaneal bone graft. We discussed the above procedures in detail. This included a discussion on the indications, contraindications, and possible complications including but not limited to: infection, non-healing wound, chronic pain, swelling, bleeding, blood clots, heart complications, nerve injury, tendon injury, vascular injury, loss of limb, loss of life, non-union, malunion, hardware failure, and need for further surgery. We also reviewed the expected post operative course, including a discussion on the non-weightbearing status after this procedure. He related understanding of our discussion regarding this surgery. All questions were answered to his satisfaction, and a proper written informed consent was obtained, signed, and placed in the chart. No guarantees were given, stated or implied, as to the outcome of this procedure. PROCEDURE IN DETAIL The patient was seen in the pre-operative holding area by Anesthesia, where he was consented for General Anesthesia with local and regional nerve blocks. The patient was then brought back to the operative suite and placed on the operating room table in the supine position. A sign-in was performed. General anesthesia was then initiated per Anesthesia protocol. A well-padded pneumatic right calf tourniquet was then placed. Next, the right lower leg was scrubbed, prepped, and draped in the usual aseptic manner. A [place] Time-Out was performed, and all parties in the room agreed. Next, an Esmarch was used to exsanguinate the right foot. The pneumatic calf tourniquet was inflated to 250 mmHg. A total of 20mL of 1% lidocaine plain was injected to the right dorsal foot and lateral foot. Attention when then directed to the right lateral foot where a linear incision was made over the 3rd and 4th metatarsal shaft interspace.The incision was carried deep to the level of 3rd and 4th metatarsal shafts, paying careful attention to retract the extensor digitorum tendons, which appeared to be fully intact. There was significant amount of scar tissue at the level of the 4th metatarsal given history of multiple surgical procedures. A rongeur and curette were used to remove the hypertrophic bone at the shaft non-union sites of both 3rd and 4th metatarsals. Of note, there was significant amount of sclerotic bone at the non-union sites which was penetrated and removed using a drill bit and osteotome to the level of bleeding bone. A specimen from the 4th metatarsal non- union bone was sent to pathology. Attention was then directed to the right lateral foot where a linear incision was made at the level of the posterior calcaneal body. A 1cm trocar was used to obtain a bone graft from the posterior calcaneus. The wound was then irrigated with copious amounts of normal saline then closed using 4-0 Vicryl and 3-0 Nylon. The graft was then applied to the 3rd and 4th metatarsal non-union sites, along with a Allopure tri-cortical ilium allograft to the 4th metatarsal defect, and Synthes DBM putty. A Synthes short T-plate was used to fixated the 3rd metatarsal using four 2.7mm cortical screws after manual reduction was performed using two olive wires. The 4th metatarsal was fixated using a Synthes 6-hole LCP plate and five 2.4mm cortical screws after manual reduction using olive wires. Fixation of both metatarsals appeared to be stable and in anatomic alignment confirmed clinically and under fluoroscopy. The wound was irrigated with copious amounts of normal saline. The subcutaneous tissue was re-approximated using 4-0 Vicryl and the skin was re- approximated under minimal tension using 3-0 Nylon. A dry, sterile dressing was then applied, which consisted of: Xeroform, 4x4's, Kerlix fluffs, ABDs, and Kerlix roll. The right calf tourniquet was then deflated, and a proper hyperemic response was noted to the digits on the right foot. Capillary refill time of the toes on the right foot was also noted to be brisk at this time. A well-padded posterior splint was applied with the foot 90 degrees relative to the lower leg. The posterior splint was then secured to the foot and leg using an LEIA bandage. A sign-out was performed. The patient tolerated anesthesia and the procedure well, and was transferred to PAC-U with vital signs stable and vascular status intact to the right lower extremity. Needle and sponge counts were correct X 2 at the end of the case. Dr. Kris Wilcox was present, scrubbed, and participated in all vital aspects of the procedure. Patient received a popliteal fossa nerve block by anesthesia in the post operative area following the procedure. After a brief stay in PAC-U, the patient will be admitted for overnight observation and Hospitalist service is consulted to assist with medical management. He has a medical history of Myotonic Dystrophy and will be monitored closely in the post operative period. 07/10/18 11:23 07/10/18 11:27 07/10/18 11:42
[2018-07-08] MEDS ORDERED: ROPIVACAINE HCL/PF 0.5% 30 ML VIAL ONE (19:18)
--- NOTE | 2018-07-08 19:36 | Anesthesia Procedures ---
Date of Encounter: 07/08/18 Time of Encounter: 17:24 Procedures: Anesthesia - Nerve Block Procedure Date: 07/08/18 Time: 17:24 Allergies/Adv Reactions: Allergies amphetamine [From Adderall] Allergy (Verified 07/08/18 14:00) Anaphylaxis bupropion [From Wellbutrin] Allergy (Verified 07/08/18 14:00) Anaphylaxis dextroamphetamine [From Adderall] Allergy (Verified 07/08/18 14:00) Anaphylaxis tapentadol [From Nucynta] Allergy (Verified 07/08/18 14:00) Anaphylaxis tramadol Allergy (Verified 07/08/18 14:00) Anaphylaxis Surgical Procedure: right 3rd and 4th nonunion with surigical fixation Checklist: Correct Patient Identifier, Correct procedure, History checked Correct side: Right Blood Thinner: No Monitor Applied: EKG, BP, Pulse Oximetry Supplemental Oxygen via Nasal Cannula (L/min): 2 Sedation: Versed (mg): 2 Indication: Post Op Analgesia Pre-op Neuro Deficits: No Block Type: Popliteal Catheter placed: No Sterile Technique: Yes Ultrasound used: Yes Anatomy identified: Yes Visual spread of Local: Yes Blood on Needle Aspiration: No Smooth Injection of Local: Yes Pain with Injection of Local: No Prep: Chlorhexadine Needle: 21 x 100 mm Stimuplex Local: Ropivacaine (and decadron) Volume (cc): 30 Number of Attempts: 1 Complications: None/effective block Vitals: see PACU RNs vitals
--- NOTE | 2018-07-08 19:39 | Anesthesia Evaluation Post Op ---
Date of Encounter: 07/08/18 Time of Encounter: 19:38 - Vital Signs Vital Signs: Vital Signs Temperature 97.9 F 07/08/18 12:51 Pulse Rate 65 07/08/18 12:51 Respiratory Rate 18 07/08/18 12:51 Blood Pressure 130/82 07/08/18 12:51 O2 Sat by Pulse Oximetry 98 07/08/18 12:51 Temperature 99.8 F H 07/08/18 19:10 Pulse Rate 88 07/08/18 19:30 Respiratory Rate 14 07/08/18 19:30 Blood Pressure 117/78 07/08/18 19:30 O2 Sat by Pulse Oximetry 95 07/08/18 19:30 - Lungs Lungs: Clear Ascult./Percussion - Airway Airway: Non-obstructed - Cardiovascular Regular Rate - Mental Status Mental Status: Alert & Oriented, Answers Appropriately - Pain Pain Scale: 3 Pain Scale used: Numeric (1 - 10) - Nausea Vomiting Nausea Vomiting: Not Present - Hydration Hydration: Ice chips - Discharge PostOp Status: Transfer Patient to floor
[2018-07-08] MEDS ORDERED: Naloxone 0.4 MG/ML INJ IVP PRN ×2 (19:42→20:34)
[2018-07-08] MEDS ORDERED: Acetaminophen 325 MG TABLET PO PRN (19:42)
--- NOTE | 2018-07-08 19:49 | Internal Med History&Physical ---
Date of Encounter: 07/08/18 Time of Encounter: 21:00 Internal Medicine - H&P: HPI Chief complaint: Hx of Myotonic Dystrophy s/p Podiatric Surgery History of present illness: Mr. Chery is a 52 year old male with a significant past medical history of myotonic dystrophy, coronary artery disease status post pacemaker, diabetes and hypertension who presented for elective surgical repair of a third and fourth metatarsal fracture. Given his history of myotonic dystrophy, we have been asked to admit the patient for close postoperative monitoring and management of his chronic conditions. Patient currently lying in bed in no acute distress. Currently cannot feel any sensation in his right foot due to the nerve block. Denies any difficulty breathing. He is currently on 2 L nasal cannula satting at 98%. Patient does have a rash on the forearms which she states occurred after he used a hair removal device the day before surgery. He does state that he is on BiPAP at night for his obstructive sleep apnea. He denies any fever, chills, chest pain, shortness of breath, abdominal pain, nausea or diarrhea. Past Med Surg Social Fam HX - Past Medical History Medical history: coronary artery disease, diabetes, hyperlipidemia, hypertension, renal disease, thyroid disease, other Additional medical history: myotonic dystrophy, Psychiatric history: anxiety, depression - Past Surgical History Surgical History: angioplasty/stent, herniorrhaphy, orthopedic, other, pacemaker Additional surgical history: excision of cyst from Left buttock, cardiac cath w/ no stents, edg/ colonoscopy, I&D of left gluteal epidermal cyst, trucut biospy right arm, excisional biospy right axillary mass, sesmoid right, bipap. pacemaker - Social History Smoking Status: Former smoker Smokeless Tobacco Status: No Alcohol use: occasionally Drug use: none - Family History Mother Living Status: Still Living Hx Family Cardiac Disorders: Yes (pacemaker) Hx Family Respiratory Disorders: No Hx Family Cancer: No Hx Family GI Disorders: No Hx Family Endocrine Disorder: No Hx Family Neuromuscular Disorders: No Hx Family Neurologic Disorders: No Hx Family HEENT Disorders: No Hx Family Autoimmune Disorders: No Father Living Status: Still Living Hx Family Cardiac Disorders: No Hx Family Respiratory Disorders: No Hx Family Cancer: Yes (skin ca) Hx Family GI Disorders: No Hx Family Endocrine Disorder: No Hx Family Neuromuscular Disorders: No Hx Family Neurologic Disorders: No Hx Family HEENT Disorders: No Hx Family Autoimmune Disorders: No Internal Medicine - H&P: Meds Atenolol [Tenormin] 25 mg PO DAILY 10/30/16 [History] DULoxetine [Cymbalta] 30 mg PO BID 10/30/16 [History] Ergocalciferol (VITAMIN D2) [Vitamin D2] 50,000 unit PO SUTUTHSA 10/30/16 [History] Ezetimibe [Zetia] 10 mg PO DAILY 10/30/16 [History] Glimepiride [Amaryl] 4 mg PO BID 10/30/16 [History] HYDROmorphone [Dilaudid] 2 - 4 mg PO Q6HR PRN 10/30/16 [History] LORazepam [Lorazepam] 4 mg PO HS 10/30/16 [History] Levothyroxine Sodium [Synthroid] 200 mcg PO DAILY 10/30/16 [History] Losartan Potassium [Cozaar] 100 mg PO DAILY 10/30/16 [History] Metformin HCl [Glucophage] 1,000 mg PO BID 10/30/16 [History] OxyCODONE Immed Rel [Roxicodone 20 MG] 20 mg PO Q6H PRN 10/30/16 [History] Testosterone Cypionate [Testone Cik] 2 ml IM Q2W 10/30/16 [History] Trazodone HCl 100 mg PO HS 10/30/16 [History] diazePAM [Valium] 5 mg PO BID PRN 10/30/16 [History] Allopurinol [Zyloprim 100 MG] 100 mg PO DAILY 06/04/17 [History] Fish Oil/Borage/Flax/Om3,6,9#1 [[place] 3-6-9 1,200 mg Softgel] 1,200 mg PO BID 06/04/17 [History] Gemfibrozil [Lopid] 600 mg PO BID 06/04/17 [History] Liraglutide [Victoza 2-Fly] 1.8 mg SQ DAILY 06/04/17 [History] Chlorthalidone 25 mg PO DAILY 12/01/17 [History] Methylphenidate HCl [Ritalin] 10 mg PO TID 07/08/18 [History] raNITIdine HCl [Zantac] 150 mg PO BID 07/08/18 [History] Allergy/AdvReac Type Severity Reaction Status Date / Time amphetamine [From Adderall] Allergy Anaphylaxis Verified 07/08/18 14:00 bupropion [From Wellbutrin] Allergy Anaphylaxis Verified 07/08/18 14:00 dextroamphetamine Allergy Anaphylaxis Verified 07/08/18 14:00 [From Adderall] tapentadol [From Nucynta] Allergy Anaphylaxis Verified 07/08/18 14:00 tramadol Allergy Anaphylaxis Verified 07/08/18 14:00 All Systems PM: A 10-system review of systems was performed and is negative for pertinent findings except as documented above in the HPI. - Constitutional Constitutional: no chills, no fever(s), no night sweats - EENT Eyes: no change in vision, no discharge, no pain, no photophobia Ears: no ear discharge, no ear pain, no tinnitus Nose, mouth and throat: no dysphagia, no nasal discharge, no neck pain, no sore throat - Cardiovascular Cardiovascular ROS IM: no chest pain, no diaphoresis, no dyspnea, no lightheadedness, no palpitations, no syncope - Respiratory Respiratory: no cough, no dyspnea, no wheezing, no excessive phlegm production - Gastrointestinal Gastrointestinal: no abdominal pain, no diarrhea, no hematemesis, no hematochezia, no melena, no nausea, no vomiting - Musculoskeletal Musculoskeletal ROS IM: no numbness, no tingling - Integumentary Integumentary IM: no rash, no unusual bruising - Neurological Neurological ROS: no confusion, no convulsions, no focal weakness, no numbness, no tingling, no tremor(s) - Hematologic/Lymphatic Hematologic/Lymphatic: no easy bruising - Constitutional Vitals: Temp Pulse Resp BP Pulse Ox 99.8 F H 88 14 117/78 95 07/08/18 19:10 07/08/18 19:30 07/08/18 19:30 07/08/18 19:30 07/08/18 19:30 Exam: General: Alert and oriented 3 lying in bed in no acute distress Skin:Normal color, no rash, no lesions. HEENT:EOM, pupils equal, round and reactive. Cardiovascular:Normal S1 & S2, no rubs, murmurs or gallops. No JVD. Pulse regular. Lungs:Normal breath sounds, no wheezes or crackles. Abdomen:Soft, non-tender, no rigidity. Extremities: Right foot in soft cast. Toes demonstrate good capillary refill. Neurological:Normal cognition and motor skills. Pulses:Carotid and radial pulses normal +2. Rest of the physical exam is non contributory Internal Med - H&P Results - Labs CBC & Chem 7: 07/09/18 06:06 07/08/18 21:39 - Impressions ITS Impressions Fluoroscopy 07/08/18 16:17 IMPRESSION: Intraoperative fluoroscopy provided during ORIF of 3rd and 4th metatarsal fractures. See intraoperative note for complete details. D/ / Sohail Dorman MD / Sohail Dorman MD Interpreting Provider: Sohail Dorman MD - Assessment and plan (1) Metatarsal fracture Current Visit: Yes Status: Acute Assessment and plan: Patient status post open reduction with internal fixation of the right third and fourth metatarsal fracture. Procedure was performed under general anesthesia. Patient appears to have good blood flow to his right foot. -Patient currently denies any pain possibly due to nerve block. We will continue to monitor -Stable from a respiratory standpoint. We will continue to monitor on continuous pulse ox. 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 He is followed by Dr. Lui at [facility] neurology. Per the literature, respiratory muscle weakness is rare in patients with DM 2, however will closely monitor. Patient appears stable from a respiratory standpoint. -We will place patient on telemetry as well as continuous pulse ox. -Continue with BiPAP at night. (3) Obstructive sleep apnea Current Visit: Yes Status: Acute Assessment and plan: Per records patient is on BiPAP at night with the setting of 15/10. -We will consider resuming BiPAP tonight. (4) Diabetes mellitus, type 2 Current Visit: No Status: Chronic Assessment and plan: Accu-Cheks every 6 hours. Sliding scale insulin Qualifiers: Diabetes mellitus termite treater insulin use: without termite treater use Diabetes mellitus complication status: without complication Qualified Code(s): E11.9 - Type 2 diabetes mellitus without complications (5) Essential hypertension Current Visit: No Status: Chronic Assessment and plan: Blood pressure stable. We will continue to monitor. Resume home antihypertensives as needed. (6) Hypothyroidism Current Visit: No Status: Chronic Assessment and plan: Resume patient's levothyroxine. Qualifiers: Hypothyroidism type: other Qualified Code(s): E03.8 - Other specified hypothyroidism (7) DVT prophylaxis Current Visit: Yes Status: Acute Assessment and plan: Pneumatic compression devices - Time Spent With Patient Total time spent is greater than 50% in coordination of care (as documented) at patient's floor/unit and/or counseling patient:
[2018-07-08] MEDS ORDERED: D5% in Water 1,000 ML IVC PRN ×2 (19:56→21:24)
[2018-07-08] MEDS ORDERED: Dextrose Gel 15 GM/37.5 ML TUBE PO PRN ×4 (19:56→21:24)
[2018-07-08] MEDS ORDERED: *HR* Dextrose 50 % in Water (Syg) 50 ML SYRINGE IVP PRN ×2 (19:56→21:24)
[2018-07-08] MEDS ORDERED: ceFAZolin sodium 3,000 MG in 0.9 % Sodium Chloride 100 ML IVPB ONE (20:00)
[2018-07-08] MEDS ORDERED: Chloraseptic Spray 177 ML BOTTLE MM PRN (20:33)
[2018-07-08] MEDS ORDERED: traZODone 50 MG TABLET PO SCH (21:00)
[2018-07-08] MEDS ORDERED: Insulin LISPRO 300 UNITS/3 ML VIAL SQ SCH (21:30)
[2018-07-08 22:04] LABS: Estimated Average Glucose 154 mg/dl
[2018-07-08 23:04] LABS: Hematocrit 44.8 % (37.5-50.1); Hemoglobin 15.1 g/dL (12.9-16.9); Mean Corpuscular HGB Conc 33.7 g/dL (31.6-35.5); Mean Corpuscular Hemoglobin 30.3 pg (28.0-33.3); Mean Platelet Volume 10.2 fL (9.4-12.4); Platelet Count 140 K/mcL (140-400); Red Blood Count 4.98 M/mcL (4.19-5.50); Red Cell Distribution Width 13.1 % (11.5-14.5)
[2018-07-08 23:14] LABS: BUN/Creatinine Ratio 23 (6-26); Blood Urea Nitrogen 28 mg/dL (6-20); Calcium 9.8 mg/dL (8.6-10.3); Carbon Dioxide 31 mEq/L (23-29); Chloride 104 mEq/L (98-107); Glucose 116 mg/dL (70-105); Osmolality,Calculated 292 (280-300); Potassium 3.8 mEq/L (3.5-5.1); Sodium 138 mEq/L (136-145); eGFR For Non-African Americans > 60 (> 60)
[2018-07-08] MEDS: Methylphenidate HCl 10 MG TABLET PO SCH (23:27)
[2018-07-08] MEDS: Famotidine 20 MG TABLET PO SCH (23:35)
[2018-07-08] MEDS: ceFAZolin sodium 3,000 MG in 0.9 % Sodium Chloride 100 ML IVPB SCH (23:38)
[2018-07-08] MEDS: Cholecalciferol (D-3) 1,000 UNIT TABLET PO SCH (23:39)
[2018-07-09] MEDS ORDERED: Insulin LISPRO 300 UNITS/3 ML VIAL SQ SCH
[2018-07-09] MEDS: ceFAZolin sodium 3,000 MG in 0.9 % Sodium Chloride 100 ML IVPB SCH (06:34)
[2018-07-09 06:40] LABS: Basophils % 0.4 %; Eosinophils % 0.2 %; Hematocrit 46.2 % (37.5-50.1); Hemoglobin 15.5 g/dL (12.9-16.9); Immature Granulocytes % 0.9 % (0-4); Lymphocytes # 0.6 K/mcL (0.6-4.6); Lymphocytes % 7.2 %; Mean Corpuscular HGB Conc 33.5 g/dL (31.6-35.5); Mean Corpuscular Hemoglobin 30.2 pg (28.0-33.3); Mean Corpuscular Volume 89.9 fL (83.0-100.0); Mean Platelet Volume 10.8 fL (9.4-12.4); Monocytes # 0.2 K/mcL (0.0-1.3); Monocytes % 2.6 %; Neutrophils # 7.3 K/mcL (1.6-8.9); Platelet Count 149 K/mcL (140-400); Red Blood Count 5.14 M/mcL (4.19-5.50); Red Cell Distribution Width 12.9 % (11.5-14.5); Segmented Neutrophils % 88.7 %
[2018-07-09 06:58] LABS: BUN/Creatinine Ratio 25 (6-26); Blood Urea Nitrogen 29 mg/dL (6-20); Calcium 9.6 mg/dL (8.6-10.3); Carbon Dioxide 27 mEq/L (23-29); Chloride 101 mEq/L (98-107); Glucose 202 mg/dL (70-105); Osmolality,Calculated 294 (280-300); Potassium 4.3 mEq/L (3.5-5.1); Sodium 136 mEq/L (136-145); eGFR For Non-African Americans > 60 (> 60)
--- NOTE | 2018-07-09 07:52 | Podiatry Consult Note ---
Date of Encounter: 07/09/18 Time of Encounter: 07:51 Assessment and Plan (1) Metatarsal fracture Current visit: Yes Status: Acute 1. Patient progressing well on POD 1 s/p right 3rd/4th metatarsal fracture non- union ORIF with calcaneal bone graft. Continue NWB. Keep splint intact. Rest, ice, elevation recommended. He is to continue use of bone stimulator at home. Follow up with Dr. Kris Wilcox 1 week after surgery. He can discharge today when medically stable. Qualifiers: Qualified Code(s): S92.309A - Fracture of unspecified metatarsal bone(s), unspecified foot, initial encounter for closed fracture History of Present Illness Chief complaint: right foot surgery HPI: Mr. Chery is a 52 year old male admitted for observation s/p right 3rd and 4th metatarsal ORIF for nonunion with harvest of calcaneal bone graft. He is progressing well. He denies pain due to nerve block. He has been NWB with splint intact. He denies n/v/f/c, chest pain, SOB, calf pain today. He is being seen by hospitalist group to help with medical management. Past Med Surg Social Fam HX - Past Medical History Medical history: coronary artery disease, diabetes, hyperlipidemia, hypertension, renal disease, thyroid disease, other Additional medical history: myotonic dystrophy, Psychiatric history: anxiety, depression - Past Surgical History Surgical History: angioplasty/stent, herniorrhaphy, orthopedic, other, pacemaker Additional surgical history: excision of cyst from Left buttock, cardiac cath w/ no stents, edg/ colonoscopy, I&D of left gluteal epidermal cyst, trucut biospy right arm, excisional biospy right axillary mass, sesmoid right, bipap. pacemaker - Social History Smoking Status: Former smoker Smokeless Tobacco Status: No Alcohol use: occasionally Drug use: none - Family History Mother Living Status: Still Living Hx Family Cardiac Disorders: Yes (pacemaker) Hx Family Respiratory Disorders: No Hx Family Cancer: No Hx Family GI Disorders: No Hx Family Endocrine Disorder: No Hx Family Neuromuscular Disorders: No Hx Family Neurologic Disorders: No Hx Family HEENT Disorders: No Hx Family Autoimmune Disorders: No Father Living Status: Still Living Hx Family Cardiac Disorders: No Hx Family Respiratory Disorders: No Hx Family Cancer: Yes (skin ca) Hx Family GI Disorders: No Hx Family Endocrine Disorder: No Hx Family Neuromuscular Disorders: No Hx Family Neurologic Disorders: No Hx Family HEENT Disorders: No Hx Family Autoimmune Disorders: No Medications and Allergies Atenolol [Tenormin] 25 mg PO DAILY 10/30/16 [History] DULoxetine [Cymbalta] 30 mg PO BID 10/30/16 [History] Ergocalciferol (VITAMIN D2) [Vitamin D2] 50,000 unit PO SUTUTHSA 10/30/16 [History] Ezetimibe [Zetia] 10 mg PO DAILY 10/30/16 [History] Glimepiride [Amaryl] 4 mg PO BID 10/30/16 [History] HYDROmorphone [Dilaudid] 2 - 4 mg PO Q6HR PRN 10/30/16 [History] LORazepam [Lorazepam] 4 mg PO HS 10/30/16 [History] Levothyroxine Sodium [Synthroid] 200 mcg PO DAILY 10/30/16 [History] Losartan Potassium [Cozaar] 100 mg PO DAILY 10/30/16 [History] Metformin HCl [Glucophage] 1,000 mg PO BID 10/30/16 [History] OxyCODONE Immed Rel [Roxicodone 20 MG] 20 mg PO Q6H PRN 10/30/16 [History] Testosterone Cypionate [Testone Cik] 2 ml IM Q2W 10/30/16 [History] Trazodone HCl 100 mg PO HS 10/30/16 [History] diazePAM [Valium] 5 mg PO BID PRN 10/30/16 [History] Allopurinol [Zyloprim 100 MG] 100 mg PO DAILY 06/04/17 [History] Fish Oil/Borage/Flax/Om3,6,9#1 [[place] 3-6-9 1,200 mg Softgel] 1,200 mg PO BID 06/04/17 [History] Gemfibrozil [Lopid] 600 mg PO BID 06/04/17 [History] Liraglutide [Victoza 2-Fly] 1.8 mg SQ DAILY 06/04/17 [History] Chlorthalidone 25 mg PO DAILY 12/01/17 [History] Methylphenidate HCl [Ritalin] 10 mg PO TID 07/08/18 [History] raNITIdine HCl [Zantac] 150 mg PO BID 07/08/18 [History] Cephalexin [Keflex] 500 mg PO BID 5 Days #10 capsule 07/09/18 [Rx] Rivaroxaban [Xarelto] 10 mg PO 1700 21 Days #21 tablet 07/09/18 [Rx] Allergy/AdvReac Type Severity Reaction Status Date / Time amphetamine [From Adderall] Allergy Anaphylaxis Verified 07/08/18 14:00 bupropion [From Wellbutrin] Allergy Anaphylaxis Verified 07/08/18 14:00 dextroamphetamine Allergy Anaphylaxis Verified 07/08/18 14:00 [From Adderall] tapentadol [From Nucynta] Allergy Anaphylaxis Verified 07/08/18 14:00 tramadol Allergy Anaphylaxis Verified 07/08/18 14:00 All Systems Reviewed: The remainder of the systems were reviewed and are negative Physical Exam - Constitutional Vitals: Temp Pulse Resp BP Pulse Ox 97.8 F 76 14 130/78 96 07/09/18 07:06 07/09/18 07:06 07/09/18 07:06 07/09/18 07:06 07/09/18 07:06 Exam: Alert, oriented, well-appearing. Vascular: Capillary refill less than 3 seconds all digits right foot. Dermatology: Splint intact right foot. No streaking erythema. Musculoskeletal:Unable to move toes on right due to nerve block. No pain with manual compression of calf. Neuro: Sensations diminished to light touch right foot. Results - Labs Result Diagrams: 07/09/18 06:06 07/09/18 06:06 Labs: Abnormal lab results BUN 29 mg/dL (6-20) H 07/09/18 06:06 Glucose 202 mg/dL (70-105) H 07/09/18 06:06 Hemoglobin A1c 7.0 % (-5.6) H 07/08/18 21:41 H & H 07/08/18 07/09/18 Range/Units 22:54 06:06 Hgb 15.1 15.5 (12.9-16.9) g/dL Hct 44.8 46.2 (37.5-50.1) % All other labs normal. Consult Discharge Plan - Plan Additional Instructions: Follow up with Dr. Kris Wilcox 1 week after discharge. Post operative instructions to be printed in outpatient procedure discharge plan. Referrals: Ivan Scmhidt MD [Primary Care Provider] - Prescriptions: Cephalexin [Keflex] 500 mg PO BID 5 Days #10 capsule Rivaroxaban [Xarelto] 10 mg PO 1700 21 Days #21 tablet
[2018-07-09] MEDS: Cholecalciferol (D-3) 1,000 UNIT TABLET PO SCH (08:05)
[2018-07-09] MEDS: Methylphenidate HCl 10 MG TABLET PO SCH (08:05)
[2018-07-09] MEDS: Famotidine 20 MG TABLET PO SCH (08:05)
[2018-07-09] MEDS: Insulin LISPRO 300 UNITS/3 ML VIAL SQ SCH ×2 (08:06→11:26)
--- NOTE | 2018-07-09 08:44 | Discharge Summary ---
Outpatient Proc Discharge Plan - Plan Additional Instructions: Follow up with Dr. Kris Wilcox 1 week after discharge. Non-weightbearing right lower extremity using crutches, walker, or wheelchair which he has at home. Rest, ice elevation of limb recommended. Continue use of bone stimulator. Keep dressing clean, dry, and intact. Call the office or report to the ED with any of the following signs or symptoms: nausea, vomiting, fever, chills, chest pain, shortness of breath, calf pain, thigh pain, streaking redness from the dressing. Patient currently has pain medications at home for chronic pain symptoms. No pain medication prescribed for this procedure. Medications at discharge: Keflex 500mg twice daily for antibiotic Xarelto 10mg daily for DVT prophylaxis Prescriptions: Cephalexin [Keflex] 500 mg PO BID 5 Days #10 capsule Rivaroxaban [Xarelto] 10 mg PO 1700 21 Days #21 tablet Home Medications: Atenolol [Tenormin] 25 mg PO DAILY 10/30/16 [History] DULoxetine [Cymbalta] 30 mg PO BID 10/30/16 [History] Ergocalciferol (VITAMIN D2) [Vitamin D2] 50,000 unit PO SUTUTHSA 10/30/16 [History] Ezetimibe [Zetia] 10 mg PO DAILY 10/30/16 [History] Glimepiride [Amaryl] 4 mg PO BID 10/30/16 [History] HYDROmorphone [Dilaudid] 2 - 4 mg PO Q6HR PRN 10/30/16 [History] LORazepam [Lorazepam] 4 mg PO HS 10/30/16 [History] Levothyroxine Sodium [Synthroid] 200 mcg PO DAILY 10/30/16 [History] Losartan Potassium [Cozaar] 100 mg PO DAILY 10/30/16 [History] Metformin HCl [Glucophage] 1,000 mg PO BID 10/30/16 [History] OxyCODONE Immed Rel [Roxicodone 20 MG] 20 mg PO Q6H PRN 10/30/16 [History] Testosterone Cypionate [Testone Cik] 2 ml IM Q2W 10/30/16 [History] Trazodone HCl 100 mg PO HS 10/30/16 [History] diazePAM [Valium] 5 mg PO BID PRN 10/30/16 [History] Allopurinol [Zyloprim 100 MG] 100 mg PO DAILY 06/04/17 [History] Fish Oil/Borage/Flax/Om3,6,9#1 [[place] 3-6-9 1,200 mg Softgel] 1,200 mg PO BID 06/04/17 [History] Gemfibrozil [Lopid] 600 mg PO BID 06/04/17 [History] Liraglutide [Victoza 2-Fly] 1.8 mg SQ DAILY 06/04/17 [History] Chlorthalidone 25 mg PO DAILY 12/01/17 [History] Methylphenidate HCl [Ritalin] 10 mg PO TID 07/08/18 [History] raNITIdine HCl [Zantac] 150 mg PO BID 07/08/18 [History] Cephalexin [Keflex] 500 mg PO BID 5 Days #10 capsule 07/09/18 [Rx] Rivaroxaban [Xarelto] 10 mg PO 1700 21 Days #21 tablet 07/09/18 [Rx]
[2018-07-09] MEDS ORDERED: (Ezetimibe [Zetia] 10 MG) PO SCH (09:00)
[2018-07-09 11:08] VITALS: BP 149/87
--- NOTE | 2018-07-09 14:12 | Discharge Summary ---
- NOTES TO OUTPATIENT PROVIDER Notes to Outpatient Provider: Follow-up with Dr. Kris Wilcox 1 week after discharge. Orders not resulted at time of discharge: Pending orders 07/08/18 14:30 US anesthesia pain block [US] Stat 07/08/18 16:17 XR foot 3V RT [XR] Routine Date of Encounter: 07/09/18 Time of Encounter: 11:00 - Discharge Diagnosis (1) Essential hypertension Priority: Secondary Status: Chronic (2) Diabetes mellitus, type 2 Priority: Secondary Status: Chronic Qualifiers: Diabetes mellitus detention insulin use: without detention use Diabetes mellitus complication status: without complication Qualified Code(s): E11.9 - Type 2 diabetes mellitus without complications (3) Hypothyroidism Priority: Secondary Status: Chronic Qualifiers: Hypothyroidism type: other Qualified Code(s): E03.8 - Other specified hypothyroidism (4) Myotonic dystrophy, type 2 Priority: Secondary Status: Acute (5) Obstructive sleep apnea Priority: Secondary Status: Acute (6) Metatarsal fracture Priority: Primary Status: Acute Qualifiers: Qualified Code(s): S92.309A - Fracture of unspecified metatarsal bone(s), unspecified foot, initial encounter for closed fracture Hospital course: Patient is a 51-year-old male with past medical history significant for myotonic dystrophy, coronary artery disease status post pacemaker, diabetes and hypertension who presented for elective surgical repair of a third and fourth metatarsal fracture. Due to history of myotonic dystrophy, we have been asked to admit the patient for close postoperative monitoring and management of his chronic conditions. Patient with no acute events overnight and will be discharged to follow-up with Dr. Kris Wilcox 1 week after discharge. - Time Spent with Patient Total time spent providing and/or coordinating discharge services: Less than 30 minutes - Discharge Medications Prescriptions: Cephalexin [Keflex] 500 mg PO BID 5 Days #10 capsule cephALEXin [Keflex] 500 mg PO BID 5 Days #10 capsule Rivaroxaban [Xarelto] 10 mg PO 1700 21 Days #21 tablet Rivaroxaban [Xarelto] 10 mg PO 1700 21 Days #21 tablet Home Medications: Atenolol [Tenormin] 25 mg PO DAILY 10/30/16 [History] DULoxetine [Cymbalta] 30 mg PO BID 10/30/16 [History] Ergocalciferol (VITAMIN D2) [Vitamin D2] 50,000 unit PO SUTUTHSA 10/30/16 [History] Ezetimibe [Zetia] 10 mg PO DAILY 10/30/16 [History] Glimepiride [Amaryl] 4 mg PO BID 10/30/16 [History] HYDROmorphone [Dilaudid] 2 - 4 mg PO Q6HR PRN 10/30/16 [History] LORazepam [Lorazepam] 4 mg PO HS 10/30/16 [History] Levothyroxine Sodium [Synthroid] 200 mcg PO DAILY 10/30/16 [History] Losartan Potassium [Cozaar] 100 mg PO DAILY 10/30/16 [History] Metformin HCl [Glucophage] 1,000 mg PO BID 10/30/16 [History] OxyCODONE Immed Rel [Roxicodone 20 MG] 20 mg PO Q6H PRN 10/30/16 [History] Testosterone Cypionate [Testone Cik] 2 ml IM Q2W 10/30/16 [History] Trazodone HCl 100 mg PO HS 10/30/16 [History] diazePAM [Valium] 5 mg PO BID PRN 10/30/16 [History] Allopurinol [Zyloprim 100 MG] 100 mg PO DAILY 06/04/17 [History] Fish Oil/Borage/Flax/Om3,6,9#1 [[place] 3-6-9 1,200 mg Softgel] 1,200 mg PO BID 06/04/17 [History] Gemfibrozil [Lopid] 600 mg PO BID 06/04/17 [History] Liraglutide [Victoza 2-Fly] 1.8 mg SQ DAILY 06/04/17 [History] Chlorthalidone 25 mg PO DAILY 12/01/17 [History] Methylphenidate HCl [Ritalin] 10 mg PO TID 07/08/18 [History] raNITIdine HCl [Zantac] 150 mg PO BID 07/08/18 [History] Cephalexin [Keflex] 500 mg PO BID 5 Days #10 capsule 07/09/18 [Rx] Rivaroxaban [Xarelto] 10 mg PO 1700 21 Days #21 tablet 07/09/18 [Rx] Rivaroxaban [Xarelto] 10 mg PO 1700 21 Days #21 tablet 07/09/18 [Rx] cephALEXin [Keflex] 500 mg PO BID 5 Days #10 capsule 07/09/18 [Rx] Allergies/Adverse Reactions: Allergy/AdvReac Type Severity Reaction Status Date / Time amphetamine [From Adderall] Allergy Anaphylaxis Verified 07/08/18 14:00 bupropion [From Wellbutrin] Allergy Anaphylaxis Verified 07/08/18 14:00 dextroamphetamine Allergy Anaphylaxis Verified 07/08/18 14:00 [From Adderall] tapentadol [From Nucynta] Allergy Anaphylaxis Verified 07/08/18 14:00 tramadol Allergy Anaphylaxis Verified 07/08/18 14:00 Date of admission: 07/08/18 20:21 Primary care physician: Ivan Schmidt MD Consults: 07/08/18 20:34 Consult to Hospitalist [CONS] Routine Consulting Provider: Hospitalist Pia Reason for Consult: assistance with medical management s/p metatarsal fracture ORIF. Patient with myotonic distrophy. Time Notified: 19:06 Call Completed: Yes - Constitutional Vitals: Temp Pulse Resp BP Pulse Ox 97.8 F 82 17 149/87 94 07/09/18 07:06 07/09/18 11:06 07/09/18 11:06 07/09/18 11:06 07/09/18 11:06 Exam: Gen.: Nonacute distress, alert and oriented 3 Skin: Normal color - Patient Status Disposition: Home, Self-Care - Discharge Instructions Follow Up With: Kris Wilcox DPM [Partnered Physician] - 07/14/18 4:00 pm Ivan Schmidt MD [Primary Care Provider] - Additional Instructions: Follow up with Dr. Kris Wilcox 1 week after discharge. Non-weightbearing right lower extremity using crutches, walker, or wheelchair which he has at home. Rest, ice elevation of limb recommended. Continue use of bone stimulator. Keep dressing clean, dry, and intact. Call the office or report to the ED with any of the following signs or symptoms: nausea, vomiting, fever, chills, chest pain, shortness of breath, calf pain, thigh pain, streaking redness from the dressing. Patient currently has pain medications at home for chronic pain symptoms. No pain medication prescribed for this procedure. Medications at discharge: Keflex 500mg twice daily for antibiotic Xarelto 10mg daily for DVT prophylaxis
[2018-07-09] MEDS ORDERED: *HR* OxyCODONE Immed Rel 5 MG TABLET PO STA (14:56)
== END 2018-07-09 15:25 | disposition home or self-care (01) ==
LOC: SAMDAY 12:38 → 3NENU 12:38 → SUATTDRO 20:21
PROVIDERS: ADMIT Student in an Organized Health Care Education/Training Program; ATTEND Hospitalist